=== PATIENT | female | born 1990 | race African-American/Black ===

== ENCOUNTER 2016-04-16 16:56 | Emergency (ER) | payer SELFPAY ==
[2016-04-16] MEDS ORDERED: PREDNISONE 20 MG TABLET PO ONE (18:17)
[2016-04-16] MEDS ORDERED: IPRATROPIUM/ALBUTEROL 0.5-2.5 MG/3 ML AMPUL NEB ONE (18:18)
--- NOTE | 2016-04-16 19:40 | ER Document Report ---
ED Respiratory Problem - General Chief Complaint: Cough Stated Complaint: DIFFICULTY BREATHING Time seen by provider: 19:36 Mode of Arrival: Ambulatory Information source: Patient Notes: 25-year-old female presents to ED for dry cough difficulty breathing. She states she's been using her inhaler and her friend's nebulizer was not given any relief. States EMS gave her an a and a neb in the ambulance. Denies any fever. TRAVEL OUTSIDE OF THE [place] IN LAST 30 DAYS: No - HPI Patient complains to provider of: COPD, Short of breath Onset: Other - 2 days Duration: Better Initiating Event: URI Quality of pain: No pain Severity: None Pain Level: Denies Short of Breath: Mild Cough: Nonproductive Sputum amount: None At home treatment: Bronchodilators EMS treatments: Bronchodilators Associated symptoms: Congestion, Cough, PND Similar symptoms previously: Yes Recently seen / treated by doctor: No - Related Data Allergies/Adverse Reactions: No Known Allergies Allergy (Verified 05/05/15 17:48) Past Medical History - General Information source: Patient, Emergency Med Personnel Last Menstrual Period: 03/30/16 - Social History Smoking Status: Never Smoker Chew tobacco use (# tins/day): No Frequency of alcohol use: Social Drug Abuse: None Occupation: call center Lives with: Friend Family History: Arthritis, CAD, CVA, DM, Hyperlipidemia, Hypertension, Malignancy, Thyroid Disfunction, Other Patient has suicidal ideation: No Patient has homicidal ideation: No - Past Medical History Cardiac Medical History: Reports: None Pulmonary Medical History: Reports: Hx Asthma Denies: Hx Tuberculosis EENT Medical History: Reports: None Neurological Medical History: Reports: Hx Migraine Endocrine Medical History: Reports: Hx Hypothyroidism - Hashimotos Disease Renal/ Medical History: Reports: None Malignancy Medical History: Reports: None GI Medical History: Reports: None Musculoskeltal Medical History: Reports Hx Musculoskeletal Deformity - Scoliosis Skin Medical History: Reports Hx Eczema Psychiatric Medical History: Reports: Hx Depression Traumatic Medical History: Reports: None Infectious Medical History: Reports: None Past Surgical History: Reports: Hx Tubal Ligation - Immunizations Immunizations up to date: Yes Hx Diphtheria, Pertussis, Tetanus Vaccination: Yes Review of Systems - Review of Systems Constitutional: Chills, Recent illness EENT: No symptoms reported, Sinus discharge Cardiovascular: No symptoms reported Respiratory: Cough, Short of breath Gastrointestinal: No symptoms reported Genitourinary: No symptoms reported Female Genitourinary: No symptoms reported Musculoskeletal: No symptoms reported Skin: No symptoms reported Hematologic/Lymphatic: No symptoms reported Neurological/Psychological: No symptoms reported Physical Exam - Vital signs Vitals: Temp Pulse Resp BP Pulse Ox 98.1 F 107 H 20 109/68 94 04/16/16 17:11 04/16/16 17:11 04/16/16 17:11 04/16/16 17:11 04/16/16 17:11 Interpretation: Normal - General General appearance: Appears well, Alert - HEENT Head: Normocephalic, Atraumatic Eyes: Normal Pupils: PERRL Sinus: Normal Nasal: Purulent discharge, Swelling Mouth/Lips: Normal Pharynx: Post nasal drainage Neck: Normal - Respiratory Respiratory status: No respiratory distress. No: Respiratory distress Chest status: Nontender Breath sounds: Nonproductive cough Chest palpation: Normal - Cardiovascular Rhythm: Regular Heart sounds: Normal auscultation Murmur: No - Abdominal Inspection: Normal Distension: No distension Bowel sounds: Normal Tenderness: Nontender Organomegaly: No organomegaly - Back Back: Normal, Nontender - Extremities General upper extremity: Normal inspection, Nontender, Normal color, Normal ROM , Normal temperature General lower extremity: Normal inspection, Nontender, Normal color, Normal ROM , Normal temperature, Normal weight bearing. No: Yolette's sign - Neurological Neuro grossly intact: Yes Cognition: Normal Orientation: AAOx4 [place] Coma Scale Eye Opening: Spontaneous [place] Coma Scale Verbal: Oriented [place] Coma Scale Motor: Obeys Commands [place] Coma Scale Total: 15 Speech: Normal Motor strength normal: LUE, RUE, LLE, RLE Sensory: Normal - Psychological Associated symptoms: Normal affect, Normal mood - Skin Skin Temperature: Warm Skin Moisture: Dry Skin Color: Normal Course - Re-evaluation Re-evalutation: 04/16/16 20:25 Discussed x-ray with patient and written report given to patient. Patient is aware she has scoliosis. The patient he x-ray on the monitor. - Vital Signs Vital signs: Temp Pulse Resp BP Pulse Ox 98.1 F 107 H 20 109/68 94 04/16/16 17:11 04/16/16 17:11 04/16/16 17:11 04/16/16 17:11 04/16/16 17:11 - Diagnostic Test Radiology reviewed: Image reviewed, Reports reviewed Discharge - Discharge Clinical Impression: URI (upper respiratory infection) Qualifiers: URI type: unspecified URI Qualified Code(s): J06.9 - Acute upper respiratory infection, unspecified Scoliosis Qualifiers: Scoliosis type: idiopathic Idiopathic scoliosis type: adolescent Spinal region : thoracic Qualified Code(s): M41.124 - Adolescent idiopathic scoliosis, thoracic region Condition: Stable Disposition: HOME, SELF-CARE Instructions: Family Physicians / Practices Additional Instructions: UPPER RESPIRATORY ILLNESS: You have a viral infection of the respiratory passages -- a "cold." This common infection causes nasal congestion, drainage, and often sore throat and cough. It is highly contagious. The disease usually lasts about 10 to 14 days. There is no "cure" for the viral infection -- it must run its course. If there is a complication, such as bacterial infection in the nose, sinuses, middle ear, or bronchial tubes, antibiotics may be required. The antibiotics won't affect the virus. Drink plenty of fluids. A humidifier may help. An expectorant medication or decongestant may make you more comfortable. Use acetaminophen or ibuprofen for fever or aches. See the doctor if fever persists over two days, if there is any significant worsening of your symptoms, or if you simply fail to improve as expected. BRONCHOSPASM: You have tightness in the bronchial tubes, called bronchospasm. This often occurs with bronchial infections. Allergies, inhaled chemicals, and polluted or cold air can also provoke bronchospasm. It's more likely in patients with asthma in the family. Emergency treatment of bronchospasm may include adrenaline shots or bronchodilator aerosol. You may feel lightheaded and have a rapid pulse for an hour or two. Rest and get plenty of fluids. At home, we'll treat you with a bronchodilator inhaler. Antibiotics and corticosteroids may be required for some patients. Until you recover, avoid chemical fumes, dusts, pollens, and exercising in very cold or dry air. If you smoke, stop now!! If you develop a fever, increased wheezing, chest pain, or severe shortness of breath, you should contact the doctor immediately. DECONGESTANT MEDICATION: A decongestant medicine has been prescribed. Often this medicine is combined in the same tablet with an antihistamine or expectorant. This type of medicine is helpful in treating a bad cold or sinus condition, as well as in treatment of the nasal congestion of hay fever. It is not of much benefit for lung infections. Decongestant medicines are related to stimulants. They can cause an increase in blood pressure and heart rate. Persons with heart disease and high blood pressure should not take decongestants without discussing this with the physician. If you develop palpitations, chest pain, headache, or tremors, stop the medicine and consult your physician. COUGH-SUPPRESSANT & EXPECTORANT MEDICATION: You are to use a cough medication as needed for relief of symptoms. This medicine is a combination of an expectorant (to make the mucous thinner and more easily "coughed up") and a cough suppressant (to reduce the frequency of coughing). The cough-suppressant medicine is related to narcotics. You may experience mild nausea and sleepiness. Some patients who are very sensitive to narcotics may have stomach pain from this medicine. Taking the medicine with food reduces these side effects. Do not drive or work with machinery until you know how this medicine affects you. The expectorant should have no side effects. Iodine-containing expectorants (such as organidin) should not be taken by persons with active thyroid disease unless approved by your doctor. Call the doctor if you develop shortness of breath, hives, rash, itching, lightheadedness, or severe nausea and vomiting. INHALED BRONCHODILATORS: You have received a treatment of and/or prescription for an inhaled bronchodilator -- a medication which stimulates the airways in the lung to dilate. This improves the flow of air in asthma, bronchitis, and emphysema. These medicines have some similarity to adrenaline, and can cause similar side effects: shakiness, racing heart, and a sense of nervousness. These side effects decrease with time. Contact your doctor if these side effects are severe. Do not over-use the medicine. Too-frequent use of the inhaler may make it ineffective. Call your doctor if the inhaler is not controlling your symptoms at the prescribed doses. STEROID MEDICATION: You have been given an injection of or oral medicine of the cortisone/ steroid class. This medication is used to control inflammation or allergy. Jonathan t is usually only given for a short period of time, until the acute process subsides. There are usually no side effects from short-term use of cortisone-like medications. Some persons feel an increased sense of well-being and are not sleepy at bedtime. Long-term use of cortisone medications is best avoided, unless required for a severe condition. If your condition does not remit, or relapses after the course of corticosteroid medication, you should consult your physician. USE OF ACETAMINOPHEN (Tylenol): Acetaminophen may be taken for pain relief or fever control. It's much safer than aspirin, offering a wider range of "safe" dosages. It is safe during . Some brand names are Tylenol, Panadol, Datril, Anacin 3, Tempra, and Liquiprin. Acetaminophen can be repeated every four hours. The following are maximum recommended dosages: >89 pounds or adults 650 mg to 900 mg Acetaminophen can be repeated every four hours. Maximum dose not to exceed 4000 mg a day. FOLLOW-UP CARE: If you have been referred to a physician for follow-up care, call the physician s office for an appointment as you were instructed or within the next two days. If you experience worsening or a significant change in your symptoms, notify the physician immediately or return to the Emergency Department at any time for re-evaluation. Prescriptions: Albuterol Sulfate [Proair HFA Inhalation Aerosol 8.5 gm MDI] 2 puff IH Q4H PRN # 1 mdi PRN Reason: Prednisone [Sterapred Ds] 1 pkg PO ASDIR PRN 12 Days PRN Reason: Forms: Return to Work
[2016-04-16 21:17] VITALS: BP 96/52
== END 2016-04-16 21:16 | disposition home or self-care (01) ==
LOC: ER 16:56
DX: J06.9 Acute upper respiratory infection, unspecified (principal); M41.124 Adolescent idiopathic scoliosis, thoracic region; R05 Cough; R06.02 Shortness of breath; J44.9 Chronic obstructive pulmonary disease, unspecified
CPT/HCPCS: 94640; 99283; 71020; J7512; J7620

== ENCOUNTER 2016-07-28 16:55 | Emergency (ER) | payer SELFPAY ==
[2016-07-28] MEDS ORDERED: PROCHLORPERAZINE EDISYLATE INJ 10 MG/2 ML VIAL IV ONE (17:06)
[2016-07-28] MEDS ORDERED: DIPHENHYDRAMINE HCL 50 MG/ML VIAL IV ONE (17:06)
--- NOTE | 2016-07-28 18:43 | ER Document Report ---
ED General - General Chief Complaint: Headache Stated Complaint: HEADACHE Mode of Arrival: Ambulatory Information source: Patient Notes: 25-year-old female presents with complaints of headache dental pain insomnia. Patient called EMS for her headache which has been ongoing now for a few weeks. Denies any fevers or chills denies any nuchal rigidity. Patient has not been seen for these complaints in the past. Patient also notes that she has dental pain that she has not been seen for. TRAVEL OUTSIDE OF THE [place] IN LAST 30 DAYS: No - HPI Onset: Last week Onset/Duration: Persistent Quality of pain: Achy Severity: Mild Pain Level: 1 Associated symptoms: Headache, Other Exacerbated by: Denies Relieved by: Denies Similar symptoms previously: No Recently seen / treated by doctor: No - Related Data Allergies/Adverse Reactions: No Known Allergies Allergy (Verified 05/05/15 17:48) Past Medical History - Social History Smoking Status: Never Smoker Cigarette use (# per day): No Chew tobacco use (# tins/day): No Smoking Education Provided: No Frequency of alcohol use: Social Drug Abuse: None Family History: Arthritis, CAD, CVA, DM, Hyperlipidemia, Hypertension, Malignancy, Thyroid Disfunction, Other Pulmonary Medical History: Reports: Hx Asthma Denies: Hx Tuberculosis Neurological Medical History: Reports: Hx Migraine Endocrine Medical History: Reports: Hx Hypothyroidism - Hashimotos Disease Renal/ Medical History: Denies: Hx Ectopic Musculoskeltal Medical History: Reports Hx Musculoskeletal Deformity - Scoliosis Skin Medical History: Reports Hx Eczema Psychiatric Medical History: Reports: Hx Depression Past Surgical History: Reports: Hx Tubal Ligation. Denies: Hx Pacemaker - Immunizations Immunizations up to date: Yes Hx Diphtheria, Pertussis, Tetanus Vaccination: Yes Review of Systems - Review of Systems Notes: REVIEW OF SYSTEMS: CONSTITUTIONAL : Denies fever, chills, or sweats. Denies recent illness. EENT: Denies eye, ear, throat, or mouth pain or symptoms. Denies nasal or sinus congestion or discharge. Denies throat, tongue, or mouth swelling or difficulty swallowing. CARDIOVASCULAR: Denies chest pain. Denies palpitations or racing or irregular heart beat. Denies ankle edema. RESPIRATORY: Denies cough, cold, or chest congestion. Denies shortness of breath, difficulty breathing, or wheezing. GASTROINTESTINAL: Denies abdominal pain or distention. Denies nausea, vomiting , or diarrhea. Denies blood in vomitus, stools, or per rectum. Denies black, tarry stools. Denies constipation. GENITOURINARY: Denies difficulty urinating, painful urination, burning, frequency, blood in urine, or discharge. FEMALE GENITOURINARY: Denies vaginal bleeding, heavy or abnormal periods, irregular periods. Denies vaginal discharge or odor. MUSCULOSKELETAL: Denies back or neck pain or stiffness. Denies joint pain or swelling. SKIN: Denies rash, lesions or sores. HEMATOLOGIC : Denies easy bruising or bleeding. LYMPHATIC: Denies swollen, enlarged glands. NEUROLOGICAL: Denies confusion or altered mental status. Denies passing out or loss of consciousness. Denies dizziness or lightheadedness. Denies headache. Denies weakness or paralysis or loss of use of either side. Denies problems with gait or speech. Denies sensory loss, numbness, or tingling. Denies seizures. PSYCHIATRIC: Denies anxiety or stress. Denies depression, suicidal ideation, or homicidal ideation. ALL OTHER SYSTEMS REVIEWED AND NEGATIVE. Dictation was performed using [employer] voice recognition software PHYSICAL EXAMINATION: GENERAL: Well-appearing, well-nourished and in no acute distress. Patient sleeping on multiple evaluations HEAD: Atraumatic, normocephalic. EYES: Pupils equal round and reactive to light, extraocular movements intact, conjunctiva are normal. ENT: Nares patent, oropharynx clear without exudates. Moist mucous membranes. Poor dentition without abscess NECK: Normal range of motion, supple without lymphadenopathy LUNGS: Breath sounds clear to auscultation bilaterally and equal. No wheezes rales or rhonchi. HEART: Regular rate and rhythm without murmurs ABDOMEN: Soft, nontender, nondistended abdomen. No guarding, no rebound. No masses appreciated. Female : deferred Musculoskeletal: Normal range of motion, no pitting or edema. No cyanosis. NEUROLOGICAL: Cranial nerves grossly intact. Normal speech, normal gait. Normal sensory, motor exams PSYCH: Normal mood, normal affect. SKIN: Warm, Dry, normal turgor, no rashes or lesions noted. Physical Exam - Vital signs Vitals: Temp Pulse Resp BP Pulse Ox 98.0 F 76 16 116/73 100 07/28/16 17:51 07/28/16 17:51 04/15/17 17:51 07/28/16 17:51 07/28/16 17:51 Course - Re-evaluation Re-evalutation: 07/28/16 19:14 Patient was given medication for her headache, was resting comfortably throughout, when I woke her she stated she felt much better was very appreciative of the care. I will discharge her home on antibiotics for sinusitis is noted on her CT of the head as well as for a dental infection. Otherwise patient looks well is in no distress was resting comfortably. I have answered her many questions and she is stable for discharge After performing a Medical Screening Examination, I estimate there is LOW risk for ACUTE GLAUCOMA, TEMPORAL ARTERITIS, MENINGITIS, INCRANIAL HEMORRHAGE, or ISCHEMIC STROKE thus I consider the discharge disposition reasonable. I have reevaluated this patient multiple times and no significant life threatening changes are noted. The patient and I have discussed the diagnosis and risks, and we agree with discharging home with close follow-up with the understanding that symptoms and presentations can change. We also discussed returning to the Emergency Department immediately if new or worsening symptoms occur. We have discussed the symptoms which are most concerning (e.g., changing or worsening symptoms, new numbness or weakness, vomiting, fever) that necessitate immediate return. - Vital Signs Vital signs: Temp Pulse Resp BP Pulse Ox 98.0 F 76 16 116/73 100 07/28/16 17:51 07/28/16 17:51 07/28/16 17:51 07/28/16 17:51 07/28/16 17:51 - Diagnostic Test Radiology reviewed: Image reviewed, Reports reviewed Discharge - Discharge Clinical Impression: Pain, dental Headache Qualifiers: Headache type: unspecified Headache chronicity pattern: acute headache Intractability: not intractable Qualified Code(s): R51 - Headache Sinusitis Qualifiers: Sinusitis location: unspecified location Chronicity: acute Recurrence: non- recurrent Qualified Code(s): J01.90 - Acute sinusitis, unspecified Condition: Stable Disposition: HOME, SELF-CARE Instructions: Headache ([facility]), Toothache ([facility]) Additional Instructions: Follow up with your physician tomorrow for further care or return to the ED IMMEDIATELY if symptoms worsen or new concerns occur. If you cannot afford to follow up with your primary care physician a list of low cost clinics have been provided at the end of your discharge papers as well. Prescriptions: Amoxicillin 875 mg PO BID #20 tablet
[2016-07-28 19:21] VITALS: BP 112/71
== END 2016-07-28 19:19 | disposition home or self-care (01) ==
LOC: ER 16:55
DX: J01.90 Acute sinusitis, unspecified (principal); R51 Headache; K08.89 Other specified disorders of teeth and supporting structures
CPT/HCPCS: 70450; 96374; 96375; 99284; J0780; J1200

== ENCOUNTER 2016-08-08 11:15 | Emergency (ER) | payer SELFPAY ==
[2016-08-08] MEDS ORDERED: IBUPROFEN 600 MG TABLET PO ONE (12:03)
--- NOTE | 2016-08-08 12:04 | ER Document Report ---
ED Medical Screen (RME) - General Chief Complaint: Headache Stated Complaint: HEADACHE Mode of Arrival: Ambulatory Information source: Patient Notes: This is a 25-year-old female who called EMS for headache. She states that she has been dealing with frequent headaches for the past several months. Of note she was seen here 11 days ago for the same headache and had a CT of her head and was treated for sinusitis. No fevers or chills. She does report right- sided neck pain and pain and intermittent numbness to the right upper extremity. She is also concerned about a possible bad tooth on the right side. In triage she is noted to have no focal neuro deficits. Her cranial nerves are intact bilaterally. I have greeted and performed a rapid initial assessment of this patient. A comprehensive ED assessment and evaluation of the patient, analysis of test results and completion of the medical decision making process will be conducted by additional ED providers. TRAVEL OUTSIDE OF THE [place] IN LAST 30 DAYS: No - Related Data Allergies/Adverse Reactions: No Known Allergies Allergy (Verified 05/05/15 17:48) Past Medical History Pulmonary Medical History: Reports: Hx Asthma Denies: Hx Tuberculosis Neurological Medical History: Reports: Hx Migraine Endocrine Medical History: Reports: Hx Hypothyroidism - Hashimotos Disease Renal/ Medical History: Denies: Hx Ectopic , Hx Peritoneal Dialysis Musculoskeltal Medical History: Reports Hx Musculoskeletal Deformity - Scoliosis Skin Medical History: Reports Hx Eczema Psychiatric Medical History: Reports: Hx Depression Past Surgical History: Reports: Hx Tubal Ligation. Denies: Hx Pacemaker - Immunizations Immunizations up to date: Yes Hx Diphtheria, Pertussis, Tetanus Vaccination: Yes Physical Exam - Vital signs Vitals: Temp Pulse Resp BP Pulse Ox 98.2 F 89 14 116/75 99 08/08/16 11:19 08/08/16 11:19 08/08/16 11:19 08/08/16 11:19 08/08/16 11:19 Course - Vital Signs Vital signs: Temp Pulse Resp BP Pulse Ox 97.5 F 58 L 18 123/79 99 08/08/16 13:23 08/08/16 13:23 08/08/16 13:23 08/08/16 13:23 08/08/16 13:23 Doctor's Discharge - Discharge Clinical Impression: right trapezius muscle spasm, Muscle contraction headache Condition: Good Disposition: HOME, SELF-CARE Instructions: Headache ([facility]), Muscle Relaxers ([facility]), Myalagia (Muscle Pain) ( [facility]) Additional Instructions: warm compress to sore muscles range of motion, massage of the upper back muscles will help decrease the pain see neurologist for persistant pain see family practice doctor for routine care to er if worse Please complete the patient satisfaction survey if you get one, and return it.. If you do not receive a survey, then you can go to the [facility] website, [email or web address] and place your comments about your very good care. Thank you very much. It was a pleasure being your medical provider today. Prescriptions: Ibuprofen [Motrin 600 mg Tablet] 600 mg PO Q8HP PRN #30 tablet PRN Reason: Cyclobenzaprine HCl [Flexeril 10 Mg Tablet] 10 mg PO TIDP PRN #20 tablet PRN Reason: Referrals: JOSE ONEILL MD [ACTIVE STAFF] - Follow up in 1 week
--- NOTE | 2016-08-08 12:37 | ER Document Report ---
HPI - HPI Patient complains to provider of: right-sided headache that starts in the right side of her neck Onset: Other - Chronic and intermittent Onset/Duration: Persistent, Worse Quality of pain: Achy Pain Level: 4 Context: 25-year-old female complaining of right sided trapezius neck pain that radiates into causing a headache in the right side of her head. She has no photophobia or sensitivity to sound. She has a history of Guerrero's thyroiditis. No Cervical spine radiculopathy or injury. Associated Symptoms: None Exacerbated by: Movement Relieved by: Denies - Of the neck Similar symptoms previously: Yes Recently seen / treated by doctor: No - ROS ROS below otherwise negative: Yes Systems Reviewed and Negative: Yes All other systems reviewed and negative - REPRODUCTIVE LMP: JULY Reproductive: REPORTS: : - DERM Skin Color: Normal, [place] Past Medical History - General Information source: Patient - Social History Smoking Status: Never Smoker Frequency of alcohol use: None Drug Abuse: None Family History: Arthritis, CAD, CVA, DM, Hyperlipidemia, Hypertension, Malignancy, Thyroid Disfunction, Other Pulmonary Medical History: Reports: Hx Asthma Denies: Hx Tuberculosis Neurological Medical History: Reports: Hx Migraine Endocrine Medical History: Reports: Hx Hypothyroidism - Hashimotos Disease Musculoskeltal Medical History: Reports Hx Musculoskeletal Deformity - Scoliosis Skin Medical History: Reports Hx Eczema Psychiatric Medical History: Reports: Hx Depression Past Surgical History: Reports: Hx Tubal Ligation. Denies: Hx Pacemaker - Immunizations Immunizations up to date: Yes Hx Diphtheria, Pertussis, Tetanus Vaccination: Yes Vertical Provider Document - CONSTITUTIONAL Agree With Documented VS: Yes Exam Limitations: No Limitations - INFECTION CONTROL TRAVEL OUTSIDE OF THE [place] IN LAST 30 DAYS: No - HEENT HEENT: Atraumatic, Normocephalic - NECK Neck: Supple - Nontender C-spine, tender right trapezius - RESPIRATORY Respiratory: Breath Sounds Normal, No Respiratory Distress O2 Sat by Pulse Oximetry: 99 - CARDIOVASCULAR Cardiovascular: Regular Rate, Regular Rhythm - GI/ABDOMEN Gastrointestinal: Abdomen Soft, Abdomen Non-Tender, No Organomegaly, Normal Bowel Sounds - MUSCULOSKELETAL/EXTREMETIES Musculoskeletal/Extremeties: MAEW, FROM, Tender - See above - NEURO Level of Consciousness: Awake, Alert, Appropriate Motor/Sensory: No Motor Deficit, No Sensory Deficit - DERM Integumentary: Warm, Dry, No Rash Course - Vital Signs Vital signs: Temp Pulse Resp BP Pulse Ox 98.2 F 98 14 116/75 99 08/08/16 11:20 08/08/16 11:20 08/08/16 11:20 08/08/16 11:20 08/08/16 11:20 Discharge - Discharge Clinical Impression: right trapezius muscle spasm, Muscle contraction headache Condition: Good Disposition: HOME, SELF-CARE Instructions: Headache ([facility]), Muscle Relaxers ([facility]), Myalagia (Muscle Pain) ( [facility]) Additional Instructions: warm compress to sore muscles range of motion, massage of the upper back muscles will help decrease the pain see neurologist for persistant pain see family practice doctor for routine care to er if worse Please complete the patient satisfaction survey if you get one, and return it.. If you do not receive a survey, then you can go to the [facility] website, [email or web address] and place your comments about your very good care. Thank you very much. It was a pleasure being your medical provider today. Prescriptions: Ibuprofen [Motrin 600 mg Tablet] 600 mg PO Q8HP PRN #30 tablet PRN Reason: Cyclobenzaprine HCl [Flexeril 10 Mg Tablet] 10 mg PO TIDP PRN #20 tablet PRN Reason: Referrals: JOSE ONEILL MD [ACTIVE STAFF] - Follow up in 1 week
[2016-08-08] MEDS ORDERED: ACETAMINOPHEN 325 MG TABLET PO ONE (13:11)
[2016-08-08] MEDS ORDERED: LORAZEPAM 0.5 MG TABLET PO ONE (13:12)
[2016-08-08 13:26] VITALS: BP 123/79
== END 2016-08-08 13:26 | disposition home or self-care (01) ==
LOC: ER 11:15
DX: R51 Headache (principal); M62.838 Other muscle spasm; E03.9 Hypothyroidism, unspecified; Z98.51 Tubal ligation status
CPT/HCPCS: 99283

== ENCOUNTER 2016-12-29 15:24 | Emergency (ER) | payer SELFPAY ==
[2016-12-29] MEDS ORDERED: IPRATROPIUM/ALBUTEROL 0.5-2.5 MG/3 ML AMPUL NEB ONE (15:42)
[2016-12-29] MEDS ORDERED: PREDNISONE 20 MG TABLET PO ONE (15:42)
--- NOTE | 2016-12-29 15:44 | ER Document Report ---
ED Medical Screen (RME) - General Chief Complaint: Asthma Exacerbation Stated Complaint: DIFFICULTY BREATHING Time Seen by Provider: 12/29/16 15:42 TRAVEL OUTSIDE OF THE [place] IN LAST 30 DAYS: No - HPI Notes: 12/29/16 15:43 Patient with a history of asthma states out of her inhaler difficulty breathing started last night patient looks to be having trouble breathing however she is tolerating lemonade and RME forming complete sentences. Lungs sound mostly clear few scattered wheezes. - Related Data Allergies/Adverse Reactions: No Known Allergies Allergy (Verified 12/29/16 15:26) Past Medical History Pulmonary Medical History: Reports: Hx Asthma Denies: Hx Tuberculosis Neurological Medical History: Reports: Hx Migraine Endocrine Medical History: Reports: Hx Hypothyroidism - Hashimotos Disease Renal/ Medical History: Denies: Hx Ectopic , Hx Peritoneal Dialysis Musculoskeltal Medical History: Reports Hx Musculoskeletal Deformity - Scoliosis Skin Medical History: Reports Hx Eczema Psychiatric Medical History: Reports: Hx Depression Past Surgical History: Reports: Hx Tubal Ligation. Denies: Hx Pacemaker - Immunizations Immunizations up to date: Yes Hx Diphtheria, Pertussis, Tetanus Vaccination: Yes Review of Systems - Review of Systems Respiratory: Wheezing -: Yes All other systems reviewed and negative Physical Exam - Vital signs Vitals: Temp Pulse Resp BP Pulse Ox 99 F 94 20 120/58 L 100 12/29/16 15:27 12/29/16 15:27 12/29/16 15:27 12/29/16 15:27 12/29/16 15:27 - Respiratory Breath sounds: Wheezing - Scattered Course - Vital Signs Vital signs: Temp Pulse Resp BP Pulse Ox 99 F 94 20 120/58 L 100 12/29/16 15:27 12/29/16 15:27 12/29/16 15:27 12/29/16 15:27 12/29/16 15:27
--- NOTE | 2016-12-29 16:05 | RADIOLOGY REPORT (SQ) ---
EXAM DESCRIPTION: CHEST PA/LAT COMPLETED DATE/TIME: 12/29/2016 3:54 pm REASON FOR STUDY: sob COMPARISON: 04/16/2016. EXAM PARAMETERS: NUMBER OF VIEWS: two views TECHNIQUE: Digital Frontal and Lateral radiographic views of the chest acquired. RADIATION DOSE: NA LIMITATIONS: none FINDINGS: LUNGS AND PLEURA: No opacities, masses or pneumothorax. No pleural effusion. MEDIASTINUM AND HILAR STRUCTURES: No masses or contour abnormalities. HEART AND VASCULAR STRUCTURES: Heart normal size. No evidence for failure. BONES: Thoracic scoliosis. No acute findings. HARDWARE: None in the chest. OTHER: No other significant finding. IMPRESSION: NO SIGNIFICANT RADIOGRAPHIC FINDING IN THE CHEST. THORACIC SCOLIOSIS. TECHNICAL DOCUMENTATION: JOB ID: [id number] [employer]- All Rights Reserved
[2016-12-29] MEDS ORDERED: ALBUTEROL SULFATE HFA (90 MCG/PUFF) 8 GM MDI (1 MDI/ER DISP) IH ONE (16:50)
[2016-12-29 16:53] VITALS: BP 114/62
--- NOTE | 2016-12-29 16:55 | ER Document Report ---
ED General - General Chief Complaint: Asthma Exacerbation Stated Complaint: DIFFICULTY BREATHING Time Seen by Provider: 12/29/16 15:42 TRAVEL OUTSIDE OF THE [place] IN LAST 30 DAYS: No - HPI Patient complains to provider of: Difficulty breathing Notes: Patient with history of asthma coming in today for asthma exacerbation states she ran out of her inhaler last night and has had trouble breathing today. Patient denies any fevers chills patient with a dry cough. Patient is drinking lemonade upon her evaluation in [facility]. Denies any recent travel. No signs of severe respiratory distress on initial evaluation - Related Data Allergies/Adverse Reactions: No Known Allergies Allergy (Verified 12/29/16 15:26) Past Medical History - Social History Smoking Status: Current Every Day Smoker Chew tobacco use (# tins/day): No Frequency of alcohol use: None Drug Abuse: None Family History: Arthritis, CAD, CVA, DM, Hyperlipidemia, Hypertension, Malignancy, Thyroid Disfunction, Other Patient has suicidal ideation: No Patient has homicidal ideation: No Pulmonary Medical History: Reports: Hx Asthma Denies: Hx Tuberculosis Neurological Medical History: Reports: Hx Migraine Endocrine Medical History: Reports: Hx Hypothyroidism - Hashimotos Disease Renal/ Medical History: Denies: Hx Ectopic , Hx Peritoneal Dialysis Musculoskeltal Medical History: Reports Hx Musculoskeletal Deformity - Scoliosis Skin Medical History: Reports Hx Eczema Psychiatric Medical History: Reports: Hx Depression Past Surgical History: Reports: Hx Tubal Ligation. Denies: Hx Pacemaker - Immunizations Immunizations up to date: Yes Hx Diphtheria, Pertussis, Tetanus Vaccination: Yes Review of Systems - Review of Systems Constitutional: No symptoms reported EENT: No symptoms reported Cardiovascular: No symptoms reported Respiratory: Short of breath Gastrointestinal: No symptoms reported Genitourinary: No symptoms reported Female Genitourinary: No symptoms reported Musculoskeletal: No symptoms reported Skin: No symptoms reported Hematologic/Lymphatic: No symptoms reported Neurological/Psychological: No symptoms reported -: Yes All other systems reviewed and negative Physical Exam - Vital signs Vitals: Temp Pulse Resp BP Pulse Ox 99 F 94 20 120/58 L 100 12/29/16 15:27 12/29/16 15:27 12/29/16 15:27 12/29/16 15:27 12/29/16 15:27 Interpretation: Normal - General General appearance: Appears well, Alert - HEENT Head: Normocephalic, Atraumatic Eyes: Normal Pupils: PERRL - Respiratory Respiratory status: No respiratory distress Chest status: Nontender Breath sounds: Wheezing Chest palpation: Normal - Cardiovascular Rhythm: Regular Heart sounds: Normal auscultation Murmur: No - Abdominal Inspection: Normal Distension: No distension Bowel sounds: Normal Tenderness: Nontender Organomegaly: No organomegaly - Back Back: Normal, Nontender - Extremities General upper extremity: Normal inspection, Nontender, Normal color, Normal ROM , Normal temperature General lower extremity: Normal inspection, Nontender, Normal color, Normal ROM , Normal temperature, Normal weight bearing. No: Yolette's sign - Neurological Neuro grossly intact: Yes Cognition: Normal Orientation: AAOx4 [place] Coma Scale Eye Opening: Spontaneous [place] Coma Scale Verbal: Oriented [place] Coma Scale Motor: Obeys Commands [place] Coma Scale Total: 15 Speech: Normal Motor strength normal: LUE, RUE, LLE, RLE Sensory: Normal - Psychological Associated symptoms: Normal affect, Normal mood - Skin Skin Temperature: Warm Skin Moisture: Dry Skin Color: Normal Course - Re-evaluation Re-evalutation: 12/29/16 17:39 Patient presents with shortness of breath better after DuoNeb. Is on chest x- ray negative will discharge home with Ventolin inhaler prescription for another albuterol inhaler and prednisone patient will be discharged home - Vital Signs Vital signs: Temp Pulse Resp BP Pulse Ox 99.4 F 104 H 16 114/62 98 12/29/16 16:52 12/29/16 16:52 12/29/16 16:52 12/29/16 16:52 12/29/16 16:52 Discharge - Discharge Clinical Impression: Asthma Qualifiers: Asthma severity: unspecified severity Asthma complication type: uncomplicated Qualified Code(s): J45.909 - Unspecified asthma, uncomplicated Condition: Good Disposition: HOME, SELF-CARE Instructions: Asthma (OM), Inhaled Bronchodilators (OM) Additional Instructions: Use the inhaler that we gave you here 2 puffs every 4 hours for shortness of breath. Return to the ER symptoms worsen. Take steroids as prescribed. Prescriptions: Albuterol Sulfate [Proair HFA Inhalation Aerosol 8.5 gm MDI] 2 puff IH Q4H PRN # 1 mdi PRN Reason: Prednisone [Deltasone 20 mg Tablet] 2 tab PO DAILY 5 Days tablet Forms: Return to Work
== END 2016-12-29 17:00 | disposition home or self-care (01) ==
LOC: ER 15:24
DX: J45.909 Unspecified asthma, uncomplicated (principal); F17.200 Nicotine dependence, unspecified, uncomplicated; E06.3 Autoimmune thyroiditis; Z98.51 Tubal ligation status
CPT/HCPCS: 94640; 99285; 81025; 71020; J7512; J3490; J7620

== ENCOUNTER 2017-01-24 11:15 | Emergency (ER) | payer SELFPAY ==
[2017-01-24] MEDS ORDERED: ALBUTEROL SULFATE HFA (90 MCG/PUFF) 8 GM MDI (1 MDI/ER DISP) IH ONE (13:03)
--- NOTE | 2017-01-24 13:04 | ER Document Report ---
ED General - General Mode of Arrival: Ambulatory Information source: Patient TRAVEL OUTSIDE OF THE [place] IN LAST 30 DAYS: No - HPI Patient complains to provider of: Rash to neck, back, abdomen, and bilateral arms Onset: Other - 1 month ago Associated symptoms: Other - see notes above - General Chief Complaint: Rash Stated Complaint: RASH,SHORTNESS OF BREATH Time Seen by Provider: 01/24/17 12:49 Notes: 26 year old female with history of eczema presents to the ED complaining of a generalized burning and pruritic rash to the neck, back, abdomen, and bilateral arms that started 1 month ago. Patient initially thought it was eczema, but states that the rash does not look like her normal eczema. Patient denies any recent changes to soaps or diet. Patient is additionally complaining of nausea and vaginal spotting for the past week. She explains that her menstrual period is always regular. Patient denies any abdominal pain, but is complaining of a burning sensation to her sternum. Patient is not on any control pills, but has a history of a tubal ligation. Patient is out of her current inhaler medication and is unable to afford another , so she is requesting one from the ER if possible. Patient has no breathing complaints. (BINA JURADO) - Related Data Allergies/Adverse Reactions: No Known Allergies Allergy (Verified 01/24/17 11:17) Past Medical History - General Information source: Patient - Social History Smoking Status: Never Smoker Chew tobacco use (# tins/day): No Frequency of alcohol use: Social Drug Abuse: None Family History: Arthritis, CAD, CVA, DM, Hyperlipidemia, Hypertension, Malignancy, Thyroid Disfunction, Other Patient has suicidal ideation: No Pulmonary Medical History: Reports: Hx Asthma Denies: Hx Tuberculosis Neurological Medical History: Reports: Hx Migraine Endocrine Medical History: Reports: Hx Hypothyroidism - Hashimotos Disease Renal/ Medical History: Denies: Hx Ectopic , Hx Peritoneal Dialysis Musculoskeltal Medical History: Reports Hx Musculoskeletal Deformity - Scoliosis Skin Medical History: Reports Hx Eczema Psychiatric Medical History: Reports: Hx Depression Past Surgical History: Reports: Hx Tubal Ligation. Denies: Hx Pacemaker - Immunizations Immunizations up to date: Yes Hx Diphtheria, Pertussis, Tetanus Vaccination: Yes - Medical History Notes: gallo's disease (BINA JURADO) Review of Systems - Review of Systems Constitutional: No symptoms reported EENT: No symptoms reported Cardiovascular: No symptoms reported Respiratory: No symptoms reported Gastrointestinal: See HPI, Nausea Genitourinary: No symptoms reported Female Genitourinary: See HPI, Vaginal bleeding. denies: Irregular period Musculoskeletal: No symptoms reported Skin: See HPI, Rash - neck, back, abdomen, and bilateral arms Hematologic/Lymphatic: No symptoms reported Neurological/Psychological: No symptoms reported -: Yes All other systems reviewed and negative Physical Exam - General General appearance: Alert In distress: None - HEENT Head: Normocephalic, Atraumatic Eyes: Normal Extraocular movements intact: Yes Pupils: PERRL - Respiratory Respiratory status: No respiratory distress Breath sounds: Normal - Cardiovascular Rhythm: Regular Heart sounds: Normal auscultation Murmur: No Friction rub: No Gallop: None auscultated - Abdominal Inspection: Normal Tenderness: Tender - mild ashok-umbilical tenderness to palpation - Extremities General upper extremity: Normal ROM. No: Normal inspection - see skin exam below General lower extremity: Normal inspection, Normal ROM - Neurological Neuro grossly intact: Yes Cognition: Normal Orientation: AAOx4 [place] Coma Scale Eye Opening: Spontaneous [place] Coma Scale Verbal: Oriented [place] Coma Scale Motor: Obeys Commands [place] Coma Scale Total: 15 Speech: Normal - Psychological Associated symptoms: Normal affect, Normal mood - Skin Skin Temperature: Warm Skin Moisture: Dry Skin Color: Other - Nonerythematous rash with plaquing to the left anterior cubital region with some cracking to the left arm. - Vital signs Vitals: Temp Pulse Resp BP Pulse Ox 98.0 F 69 16 132/95 H 100 01/24/17 11:18 01/24/17 11:18 01/24/17 11:18 01/24/17 11:18 01/24/17 11:18 - Skin Notes: Exam should say antecubital fossa and plaquing not cracking. (EMMY GLOVER) Course - Re-evaluation Re-evalutation: 01/24/17 13:15 Rash quite suspicious for psoriasis particularly given the plaquing, patient just started taking oral prednisone 2 days ago, I suggested that she finish the oral prednisone over the next 3 days and then only if she does not see improvement in her rash should she start using topical steroids. Patient also complaining of spotting, discussed with patient that so long as her test is negative trace spotting in between periods is not overly concerning particularly as an isolated event, she will return for heavy vaginal bleeding soaking through more than 1 pad per hour or for pain, otherwise she will follow up with [facility] should the spotting persist for more than 1 cycle. Patient denies any respiratory complaints at this time however she cannot afford to refill her inhaler and is an asthmatic, patient will be given inhaler from the emergency department. (EMMY GLOVER) - Vital Signs Vital signs: Temp Pulse Resp BP Pulse Ox 98.1 F 77 20 133/88 H 100 01/24/17 14:26 01/24/17 14:26 01/24/17 14:26 01/24/17 14:26 01/24/17 14:26 Discharge - Discharge Clinical Impression: Vaginal bleeding between periods, Medication refill, Pre-hypertension Eczema Qualifiers: Eczema type: flexural Qualified Code(s): L20.82 - Flexural eczema Condition: Stable Disposition: HOME, SELF-CARE Additional Instructions: Your rash appears consistent with eczema. Please finish taking the prednisone, this may help to improve your symptoms. If it does not improve your symptoms then please start using a topical steroid cream such as hydrocortisone, you can find this [id number]. If you use the hydrocortisone please be aware that may cause bleaching of the skin or thinning of the skin. Do not cover the hydrocortisone cream with anything. You may also consider switching to a non-soap based cleanser such as Cetaphil. Your test is negative. Forms: Elevated Blood Pressure, Return to Work Referrals: LUIS AMADOR DO [Primary Care Provider] - Follow up as needed Scribe Attestation: 01/24/17 16:50 I personally performed the services described in the documentation, reviewed and edited the documentation which was dictated to the scribe in my presence, and it accurately records my words and actions. (EMMY GLOVER) Scribe Documentation - Scribe Written by Gonzalez:: Gonzalez Ledesma, 01/24/2017 [id number] acting as scribe for :: Edison
[2017-01-24 14:28] VITALS: BP 133/88
== END 2017-01-24 14:27 | disposition home or self-care (01) ==
LOC: ER 11:15
DX: L20.82 Flexural eczema (principal); N93.9 Abnormal uterine and vaginal bleeding, unspecified; R11.0 Nausea; R03.0 Elevated blood-pressure reading, without diagnosis of hypertension; R10.815 Periumbilic abdominal tenderness; J45.909 Unspecified asthma, uncomplicated; Z76.0 Encounter for issue of repeat prescription; Z98.51 Tubal ligation status
CPT/HCPCS: 99283; 81025; J3490

== ENCOUNTER 2017-03-09 19:57 | Emergency (ER) | payer SELFPAY ==
[2017-03-09 20:20] VITALS: BP 112/75
[2017-03-09] MEDS ORDERED: HYDROCORTISONE 1% OINTMENT 28.35 GM TP ONE (20:52)
[2017-03-09] MEDS ORDERED: FAMOTIDINE 20 MG TABLET PO ONE (20:52)
[2017-03-09] MEDS ORDERED: HYDROXYZINE PAMOATE 50 MG CAPSULE PO ONE (20:52)
--- NOTE | 2017-03-09 21:00 | ER Document Report ---
ED Skin Rash/Insect Bite/Abscs - General Chief Complaint: Rash Stated Complaint: POSSIBLE RASH Time Seen by Provider: 03/09/17 20:37 Mode of Arrival: Ambulatory Information source: Patient Notes: 26-year-old female presents to ED for complaint of rash to her neck torso arms and legs. She states it is been there about 2 months and she was seen here on February 16 and given prednisone tramadol and Keflex. She states that the rash got better for about a week and then it came right back and she continued taking the medication until she ran out of them. She was also seen in January 24 for the same rash. She has not been to a primary doctor and saw sharpener or a steel rule inspector because she states she does not have money to go to doctors and does not have transportation to go to another hospital that she is just walking because the doctor told her she could not work while she had this rash so her job let her go. TRAVEL OUTSIDE OF THE [place] IN LAST 30 DAYS: No - HPI Patient complains to provider of: Skin rash/lesion, Tender/swollen area Onset: Other - 2 months Onset/Duration: Persistent Quality of pain: Burning Severity: Severe Pain Level: 5 Skin Character: Rash Identify cause: No Exacerbated by: Denies Relieved by: Denies Similar symptoms previously: Yes Recently seen / treated by doctor: Yes - Related Data Allergies/Adverse Reactions: No Known Allergies Allergy (Verified 03/09/17 20:20) Past Medical History - General Information source: Patient - Social History Smoking Status: Never Smoker Cigarette use (# per day): No Chew tobacco use (# tins/day): No Smoking Education Provided: No Frequency of alcohol use: Social Drug Abuse: None Family History: Arthritis, CAD, CVA, DM, Hyperlipidemia, Hypertension, Malignancy, Thyroid Disfunction, Other Patient has suicidal ideation: No Patient has homicidal ideation: No - Past Medical History Cardiac Medical History: Reports: None Pulmonary Medical History: Reports: Hx Asthma EENT Medical History: Reports: None Neurological Medical History: Reports: Hx Migraine Endocrine Medical History: Reports: Hx Hypothyroidism - Hashimotos Disease Renal/ Medical History: Reports: None Malignancy Medical History: Reports: None GI Medical History: Reports: None Musculoskeltal Medical History: Reports Hx Musculoskeletal Deformity - Scoliosis Skin Medical History: Reports Hx Eczema Psychiatric Medical History: Reports: Hx Depression Traumatic Medical History: Reports: None Infectious Medical History: Reports: None Past Surgical History: Reports: Hx Tubal Ligation - Immunizations Immunizations up to date: Yes Hx Diphtheria, Pertussis, Tetanus Vaccination: Yes Review of Systems - Review of Systems Constitutional: No symptoms reported EENT: No symptoms reported Cardiovascular: No symptoms reported Respiratory: No symptoms reported Gastrointestinal: No symptoms reported Genitourinary: No symptoms reported Female Genitourinary: No symptoms reported Musculoskeletal: No symptoms reported Skin: Rash Hematologic/Lymphatic: No symptoms reported Neurological/Psychological: No symptoms reported -: Yes All other systems reviewed and negative Physical Exam - Vital signs Vitals: Temp Pulse Resp BP Pulse Ox 98.4 F 96 18 112/75 100 03/09/17 20:18 03/09/17 20:18 03/09/17 20:18 03/09/17 20:18 03/09/17 20:18 Interpretation: Normal - General General appearance: Appears well, Alert - HEENT Head: Normocephalic, Atraumatic Eyes: Normal Pupils: PERRL - Respiratory Respiratory status: No respiratory distress Chest status: Nontender Breath sounds: Normal Chest palpation: Normal - Cardiovascular Rhythm: Regular Heart sounds: Normal auscultation Murmur: No - Abdominal Inspection: Normal Distension: No distension Bowel sounds: Normal Tenderness: Nontender Organomegaly: No organomegaly - Back Back: Normal, Nontender - Extremities General upper extremity: Normal inspection, Nontender, Normal color, Normal ROM , Normal temperature General lower extremity: Normal inspection, Nontender, Normal color, Normal ROM , Normal temperature, Normal weight bearing. No: Yolette's sign - Neurological Neuro grossly intact: Yes Cognition: Normal Orientation: AAOx4 [place] Coma Scale Eye Opening: Spontaneous [place] Coma Scale Verbal: Oriented [place] Coma Scale Motor: Obeys Commands Demetrice Coma Scale Total: 15 Speech: Normal Motor strength normal: LUE, RUE, LLE, RLE Sensory: Normal - Psychological Associated symptoms: Normal affect, Normal mood - Skin Skin Temperature: Warm Skin Moisture: Dry Skin Color: Normal Location of irregularity: Neck, Back, Extremities - both arms Character of irregularity: Erythematous Irregularity with: Tenderness, Thickening, Inflammation, Other - Patient has a few cracked areas on the arms. Rash is much worse on the antecubital area patient had dressings with packing tape on the arms and stated that they she had open bleeding areas but no open bleeding areas noted. Course - Re-evaluation Re-evalutation: 03/09/17 21:[address] le for the rash. He agreed with the treatment plan that I had in place for Vistaril by mouth hydrocortisone ointment to the skin and Pepcid by mouth. Will discharge patient home to follow-up with steel rule inspector. - Vital Signs Vital signs: Temp Pulse Resp BP Pulse Ox 98.4 F 96 18 112/75 100 03/09/17 20:18 03/09/17 20:18 03/09/17 20:18 03/09/17 20:18 03/09/17 20:18 Discharge - Discharge Clinical Impression: Rash and nonspecific skin eruption Condition: Stable Disposition: HOME, SELF-CARE Instructions: Family Physicians / Practices Additional Instructions: Atopic Dematitis (Eczema) You have atopic dermatitis, commonly called eczema. This is a chronic allergic skin condition. It often occurs in families with asthma and hay fever. The skin develops patches of redness, itching and scaling. Eczema often affects the back of the neck, back of the legs, and front of the arms. In children it affects the back of the knees, front of the elbows, and the cheeks. Itching is the main symptom. Eczema can be triggered by dryness, heat, sweating, and detergents or soap. Scratching makes the rash worse. Food or skin allergy can cause eczema. Emotional stress may also be a factor. Symptoms may get better or worse spontaneously. Generally, the treatment consists of: (1) avoid hot-water baths, (2) avoid using soap on your skin, (3) apply a cortisone ointment as needed, and (4) use antihistamines for itching. For severe episodes, oral cortisone medication may be required. Call the doctor if you get worse despite treatment, or if signs of infection occur -- such as spreading redness, red streaks, swollen glands, swelling, or fever. Antihistamines An antihistamine has been prescribed to control your symptoms. Antihistamines are used for many reasons, including itching, watering eyes, runny nose, allergic swelling, hives, and insect stings. Antihistamines may cause drowsiness, especially with the first dose. Do not operate machinery or drive while under the effects of the medication. Other common side effects include dry mouth and eyes. In older persons, antihistamines can occasionally cause urinary retention, constipation, and trouble focusing the eyes. Do not combine the medication with alcohol, or with any other medication without talking to your doctor. Acid-Suppressing Medication You have a prescription for medicine which reduces the stomach's secretion of acid. Examples include Zantac, Tagament, and Pepcid. These drugs are often used to allow healing of ulcers or esophagitis. They may be needed to prevent recurrence of ulcers in some patients, or to prevent damage from acid reflux in the esophagus. Take all medication as prescribed, even after the pain is gone. Regular antacids may be added as needed if you have symptoms while taking this medicine. These medications sometimes are prescribed for allergic reactions because they have anti-histaminic effects and relieve the rash and itching of the reaction. There are usually no side effects from this medication. But, in rare cases and particularly in the elderly, serious problems can occur. Contact your doctor if there is fever, rash, hallucinations, confusion, or unusual bruising. Contact your doctor at once if you develop lightheadedness, black or bloody stool, or bloody vomitus. FOLLOW-UP CARE: If you have been referred to a physician for follow-up care, call the physician s office for an appointment as you were instructed or within the next two days. If you experience worsening or a significant change in your symptoms, notify the physician immediately or return to the Emergency Department at any time for re-evaluation. Prescriptions: Hydroxyzine Pamoate [Vistaril 50 mg Capsule] 50 mg PO Q12HP PRN #30 capsule PRN Reason: Famotidine [Pepcid 20 mg Tablet] 20 mg PO DAILY #20 tablet Hydrocortisone Acetate [Hydrocortisone] 28 gm TP BID #1 oint..gm. Referrals: SCOTT PEREIRA, [ACTIVE STAFF] - Follow up as needed
[2017-03-09] MEDS ORDERED: HYDROCORTISONE 1% OINTMENT 28.35 GM ONE (21:28)
== END 2017-03-09 22:05 | disposition home or self-care (01) ==
LOC: ER 19:57
DX: R21 Rash and other nonspecific skin eruption (principal); E03.9 Hypothyroidism, unspecified; Z98.51 Tubal ligation status
CPT/HCPCS: 99282; J3490

== ENCOUNTER 2017-06-20 10:32 | Emergency (ER) | payer SELFPAY ==
[2017-06-20] MEDS ORDERED: PHENAZOPYRIDINE HCL 100 MG TABLET PO ONE (10:49)
--- NOTE | 2017-06-20 10:51 | ER Document Report ---
ED Medical Screen (RME) - General Chief Complaint: Urinary Problem Stated Complaint: BLLOD IN URINE Time Seen by Provider: 06/20/17 10:49 Notes: RME DISCLOSURE I have seen this patient as part of a Rapid Medical Evaluation and, if applicable, placed any initially appropriate orders. The patient will be seen and fully evaluated, including a full history and physical exam, by a provider ( in Main ED or Fast Track) when a room becomes available. 26-year-old female here with complaints of burning with urination and bloody urine ongoing for the past 7 days. She also complains of itchy skin and reports that she was seen recently and given a prescription for a cream that has caused her skin to change colors. TRAVEL OUTSIDE OF THE [place] IN LAST 30 DAYS: No - Related Data Allergies/Adverse Reactions: No Known Allergies Allergy (Verified 06/20/17 10:38) Past Medical History - Social History Chew tobacco use (# tins/day): No Frequency of alcohol use: None Drug Abuse: None Pulmonary Medical History: Reports: Hx Asthma Denies: Hx Tuberculosis Neurological Medical History: Reports: Hx Migraine Endocrine Medical History: Reports: Hx Hypothyroidism - Hashimotos Disease Renal/ Medical History: Denies: Hx Ectopic , Hx Peritoneal Dialysis Musculoskeltal Medical History: Reports Hx Musculoskeletal Deformity - Scoliosis Skin Medical History: Reports Hx Eczema Psychiatric Medical History: Reports: Hx Depression Past Surgical History: Reports: Hx Tubal Ligation. Denies: Hx Pacemaker - Immunizations Immunizations up to date: Yes Hx Diphtheria, Pertussis, Tetanus Vaccination: Yes Physical Exam - Vital signs Vitals: Temp Pulse Resp BP Pulse Ox 97.7 F 83 16 145/79 H 100 06/20/17 10:43 06/20/17 10:43 06/20/17 10:43 06/20/17 10:43 06/20/17 10:43 Course - Vital Signs Vital signs: Temp Pulse Resp BP Pulse Ox 97.7 F 83 16 145/79 H 100 06/20/17 10:43 06/20/17 10:43 06/20/17 10:43 06/20/17 10:43 06/20/17 10:43
[2017-06-20 11:09] LABS: APPEARANCE,URINE SLIGHTLY-CLOUDY; BILIRUBIN,URINE NEGATIVE (NEGATIVE); COLOR,URINE YELLOW; GLUCOSE, URINE NEGATIVE (NEGATIVE); KETONES,URINE NEGATIVE (NEGATIVE); LEUKOCYTE ESTERASE,URINE SMALL (NEGATIVE); NITRITE,URINE POSITIVE (NEGATIVE); PROTEIN,URINE 30 mg/dL (NEGATIVE); URINE SPECIFIC GRAVITY 1.023
--- NOTE | 2017-06-20 11:10 | ER Document Report ---
HPI - HPI Patient complains to provider of: Urinary symptoms Onset: Yesterday Onset/Duration: Gradual Quality of pain: Burning Pain Level: 4 Context: Patient presents complaining of hematuria, dysuria and frequency that started yesterday. Patient additionally reports itchy skin rash to her trunk and extremities that has gradually been worsening over the past 3 months. Patient denies any new foods, medications or detergents. Associated Symptoms: Other - Dysuria, hematuria, frequency. denies: Fever Exacerbated by: Denies Relieved by: Denies Similar symptoms previously: No Recently seen / treated by doctor: No - ROS ROS below otherwise negative: Yes Systems Reviewed and Negative: Yes All other systems reviewed and negative - CONSTITUTIONAL Constitutional: DENIES: Fever - GASTROINTESTINAL Gastrointestinal: DENIES: Abdominal Pain, Nausea, Patient vomiting - URINARY Urinary: REPORTS: Dysuria, Urgency, Frequency - x 1 wk - DERM Skin Problems: Rash Past Medical History - General Information source: Patient - Social History Smoking Status: Never Smoker Chew tobacco use (# tins/day): No Frequency of alcohol use: Occasional Drug Abuse: None Occupation: [employer] Family History: Arthritis, CAD, CVA, DM, Hyperlipidemia, Hypertension, Malignancy, Thyroid Disfunction, Other Patient has suicidal ideation: No Patient has homicidal ideation: No Pulmonary Medical History: Reports: Hx Asthma Denies: Hx Tuberculosis Neurological Medical History: Reports: Hx Migraine Endocrine Medical History: Reports: Hx Hypothyroidism - Hashimotos Disease Renal/ Medical History: Denies: Hx Ectopic , Hx Peritoneal Dialysis Musculoskeltal Medical History: Reports Hx Musculoskeletal Deformity - Scoliosis Skin Medical History: Reports Hx Eczema Psychiatric Medical History: Reports: Hx Depression Past Surgical History: Reports: Hx Tubal Ligation. Denies: Hx Pacemaker - Immunizations Immunizations up to date: Yes Hx Diphtheria, Pertussis, Tetanus Vaccination: Yes Vertical Provider Document - CONSTITUTIONAL Agree With Documented VS: Yes Exam Limitations: No Limitations General Appearance: WD/WN, No Apparent Distress - INFECTION CONTROL TRAVEL OUTSIDE OF THE [place] IN LAST 30 DAYS: No - HEENT HEENT: Atraumatic, Normal ENT Exam, Normocephalic - NECK Neck: Normal Inspection, Supple. negative: Lymphadenopathy-Left, Lymphadenopathy-Right - RESPIRATORY Respiratory: Breath Sounds Normal, No Respiratory Distress O2 Sat by Pulse Oximetry: 100 - CARDIOVASCULAR Cardiovascular: Regular Rate, Regular Rhythm, No Murmur - GI/ABDOMEN Gastrointestinal: Abdomen Soft - BACK Back: Normal Inspection. negative: CVA Tenderness-Right, CVA Tenderness-Left - MUSCULOSKELETAL/EXTREMETIES Musculoskeletal/Extremeties: MAEW - NEURO Level of Consciousness: Awake, Alert, Appropriate Motor/Sensory: No Motor Deficit - DERM Integumentary: Warm, Dry, Rash - Diffuse rash to extremities upper eyelids and trunk, area thickened, excoriated areas Course - Re-evaluation Re-evalutation: 06/20/17 11:22 Patient states she has concerns about sexually transmitted infection and would like to be tested. Patient states that her boyfriend cheated on her and that the person that he cheated on her with has trichomonas. - Vital Signs Vital signs: Temp Pulse Resp BP Pulse Ox 97.7 F 83 16 145/79 H 100 06/20/17 10:43 06/20/17 10:43 06/20/17 10:43 06/20/17 10:43 06/20/17 10:43 - Laboratory Laboratory results interpreted by me: 06/20/17 11:14 Labs- Entire Visit 06/20/17 10:55 Urine Color YELLOW Urine Appearance SLIGHTLY-CLOUDY Urine pH 6.0 Ur Specific [place] 1.023 Urine Protein 30 H Urine Glucose (UA) NEGATIVE Urine Ketones NEGATIVE Urine Blood MODERATE H Urine Nitrite POSITIVE H Urine Bilirubin NEGATIVE Urine Urobilinogen 2.0 H Ur Leukocyte Esterase SMALL H Urine WBC (Auto) 53 Urine RBC (Auto) 49 Urine Bacteria (Auto) 2+ Squamous Epi Cells Auto 6 Urine Mucus (Auto) FEW Urine Ascorbic Acid NEGATIVE Urine HCG, Qual NEGATIVE Discharge - Discharge Clinical Impression: Skin rash, Elevated blood pressure reading UTI (urinary tract infection) Qualifiers: Urinary tract infection type: site unspecified Hematuria presence: with hematuria Qualified Code(s): N39.0 - Urinary tract infection, site not specified Condition: Stable Disposition: HOME, SELF-CARE Instructions: Cephalexin ([facility]), Steroid Medication, Urinary Anesthetic Agent ( [facility]), Urinary Tract Infection ([facility]) Additional Instructions: Return immediately for any new or worsening symptoms Followup with your primary care provider, call tomorrow to make a followup appointment Follow-up with a primary doctor for further evaluation, call tomorrow for an appointment Prescriptions: Cephalexin Monohydrate [Keflex 500 mg Capsule] 500 mg PO Q6H 7 Days capsule Hydroxyzine HCl [Atarax 25 mg Tablet] 1 - 2 tab PO QID #15 tablet Phenazopyridine HCl [Pyridium 200 mg Tablet] 200 mg PO TID #15 tablet Prednisone [Deltasone 5 mg Tablet] 5 mg PO ASDIR PRN #100 tablet PRN Reason: Forms: Return to Work Referrals: [facility] [Provider Group] - Follow up as needed [facility] [Provider Group] - Follow up as needed
[2017-06-20] MEDS ORDERED: CEPHALEXIN 500 MG CAPSULE PO ONE (11:14)
[2017-06-20] MEDS ORDERED: AZITHROMYCIN 250 MG TABLET PO ONE (11:36)
[2017-06-20] MEDS ORDERED: CEFTRIAXONE INJ 250 MG VIAL IM ONE (11:36)
[2017-06-20] MEDS ORDERED: PENICILLIN G BENZATHINE 1.2 MILLION UNIT/2 ML DISP.SYRIN IM ONE (11:36)
[2017-06-20] MEDS ORDERED: LIDOCAINE 1% INJ-PF (10 MG/ML) 30 ML SDV INJ ONE (11:36)
[2017-06-20 11:53] LABS: BACTERIA (WET MOUNT) 3+ BACTERIA SEEN; EPITHELIALS (WET MOUNT) 3+ EPITHELIALS SEEN; T.VAGINALIS (WET MOUNT) NO TRICHOMONAS SEEN; WBCS (WET MOUNT) FEW WBCS SEEN; YEAST (WET MOUNT) NO YEAST SEEN
[2017-06-20 13:15] LABS: CHLAM PCR NOT DETECTED (NOT DETECT); GON PCR NOT DETECTED (NOT DETECT)
[2017-06-20 13:30] VITALS: BP 119/76
== END 2017-06-20 13:24 | disposition home or self-care (01) ==
LOC: ER 10:32
DX: N39.0 Urinary tract infection, site not specified (principal); R31.9 Hematuria, unspecified; R21 Rash and other nonspecific skin eruption; R03.0 Elevated blood-pressure reading, without diagnosis of hypertension; J45.909 Unspecified asthma, uncomplicated; Z20.2 Contact with and (suspected) exposure to infections with a predominantly sexual mode of transmission
CPT/HCPCS: 99283; 96372; 36415; 87086; 87210; 81025; 87088; 86592; 81001; 87186; 87491; 87591; J3490 ×2; J0561; J0696

== ENCOUNTER 2017-07-08 10:06 | Emergency (ER) | payer SELFPAY ==
[2017-07-08] MEDS ORDERED: METHYLPREDNISOLONE ACETATE INJ 80 MG/1 ML VIAL IM ONE (11:15)
[2017-07-08] MEDS ORDERED: OXYCODONE-ACETAMINOPHEN 5-325 MG TABLET PO ONE (11:16)
[2017-07-08] MEDS ORDERED: KETOROLAC TROMETHAMINE 60 MG/2 ML SDV IM ONE (11:16)
--- NOTE | 2017-07-08 11:22 | ER Document Report ---
ED General - General Chief Complaint: Skin Problem Stated Complaint: SKIN PROBLEM Time Seen by Provider: 07/08/17 11:01 Notes: HPI-26 years old female with a history of severe eczema involving entire body, multiple ED visits, intractable allergies, presents today with whole body pain over the skin as well as rash. Which is more prominent for the last few days. Denies any fever chills or other constitutional symptoms REVIEW OF SYSTEMS: CONSTITUTIONAL : Denies fever, chills, or sweats. Denies recent illness. EENT: Denies eye, ear, throat, or mouth pain or symptoms. Denies nasal or sinus congestion or discharge. Denies throat, tongue, or mouth swelling or difficulty swallowing. CARDIOVASCULAR: Denies chest pain. Denies palpitations or racing or irregular heart beat. Denies ankle edema. RESPIRATORY: Denies cough, cold, or chest congestion. Denies shortness of breath, difficulty breathing, or wheezing. GASTROINTESTINAL: Denies abdominal pain or distention. Denies nausea, vomiting , or diarrhea. Denies blood in vomitus, stools, or per rectum. Denies black, tarry stools. Denies constipation. GENITOURINARY: Denies difficulty urinating, painful urination, burning, frequency, blood in urine, or discharge. FEMALE GENITOURINARY: Denies vaginal bleeding, heavy or abnormal periods, irregular periods. Denies vaginal discharge or odor. MUSCULOSKELETAL: Denies back or neck pain or stiffness. Denies joint pain or swelling. SKIN: Denies rash, lesions or sores. HEMATOLOGIC : Denies easy bruising or bleeding. LYMPHATIC: Denies swollen, enlarged glands. NEUROLOGICAL: Denies confusion or altered mental status. Denies passing out or loss of consciousness. Denies dizziness or lightheadedness. Denies headache. Denies weakness or paralysis or loss of use of either side. Denies problems with gait or speech. Denies sensory loss, numbness, or tingling. Denies seizures. PSYCHIATRIC: Denies anxiety or stress. Denies depression, suicidal ideation, or homicidal ideation. ALL OTHER SYSTEMS REVIEWED AND NEGATIVE. PHYSICAL EXAMINATION: GENERAL: Well-appearing, well-nourished and in no acute distress. HEAD: Atraumatic, normocephalic. EYES: Pupils equal round and reactive to light, extraocular movements intact, conjunctiva are normal. ENT: Nares patent, oropharynx clear without exudates. Moist mucous membranes. NECK: Normal range of motion, supple without lymphadenopathy LUNGS: Breath sounds clear to auscultation bilaterally and equal. No wheezes rales or rhonchi. HEART: Regular rate and rhythm without murmurs ABDOMEN: Soft, nontender, nondistended abdomen. No guarding, no rebound. No masses appreciated. Female : deferred Musculoskeletal: Normal range of motion, no pitting or edema. No cyanosis. NEUROLOGICAL: Cranial nerves grossly intact. Normal speech, normal gait. Normal sensory, motor exams PSYCH: Normal mood, normal affect. SKIN: Scaly, nonerythematous rash was noted diffusely throughout the body with thickening of the skin. And very sensitive skin to touch. Dictation was performed using [employer] voice recognition software TRAVEL OUTSIDE OF THE [place] IN LAST 30 DAYS: No - Related Data Allergies/Adverse Reactions: No Known Allergies Allergy (Verified 07/08/17 10:06) Past Medical History - General Information source: Patient - Social History Smoking Status: Never Smoker Chew tobacco use (# tins/day): No Frequency of alcohol use: None Drug Abuse: None Family History: Arthritis, CAD, CVA, DM, Hyperlipidemia, Hypertension, Malignancy, Thyroid Disfunction, Other Patient has suicidal ideation: No Patient has homicidal ideation: No Pulmonary Medical History: Reports: Hx Asthma Denies: Hx Tuberculosis Neurological Medical History: Reports: Hx Migraine Endocrine Medical History: Reports: Hx Hypothyroidism - Hashimotos Disease Renal/ Medical History: Denies: Hx Ectopic , Hx Peritoneal Dialysis Musculoskeltal Medical History: Reports Hx Musculoskeletal Deformity - Scoliosis Skin Medical History: Reports Hx Eczema Psychiatric Medical History: Reports: Hx Depression Past Surgical History: Reports: Hx Tubal Ligation. Denies: Hx Pacemaker - Immunizations Immunizations up to date: Yes Hx Diphtheria, Pertussis, Tetanus Vaccination: Yes Review of Systems - Review of Systems Notes: Unremarkable Constitutional: denies: No symptoms reported, See HPI, Chills, Diaphoresis, Fever, Malaise, Weakness, Other, Weight gain, Weight loss, Recent illness Cardiovascular: denies: No symptoms reported, See HPI, Chest pain, Palpitations , Heart racing, Orthopnea, Dyspnea, Syncope, Dizziness, Lightheaded, Edema, Other, Paroxysmal Nocturnal Dysp Respiratory: denies: No symptoms reported, See HPI, Cough, Hurts to breathe, Hemoptysis, Short of breath, Sputum, Stridor, Wheezing, Other Gastrointestinal: denies: No symptoms reported, See HPI, Abdomen distended, Abdominal pain, Diarrhea, Nausea, Vomiting, Constipation, Blood streaked bowels , Poor appetite, Poor fluid intake, Blood in vomit, Black stools, Rectal bleeding, Last bowel movement, Fecal incontinence, Other Genitourinary: denies: No symptoms reported, See HPI, Burning, Dysuria, Discharge, Frequency, Flank pain, Hematuria, Incontinence, Pain, Urgency, Retention, Other Female Genitourinary: denies: No symptoms reported, See HPI, Last menstrual period, , Post menopausal, Heavy/abnormal periods, Irregular period, Vaginal bleeding, Vaginal discharge, Vaginal odor, Painful intercourse, Other Skin: Rash Hematologic/Lymphatic: denies: No symptoms reported, See HPI, Anemia, Blood clots, Easy bleeding, Easy bruising, Enlarged lymph nodes, Swollen glands, Other Neurological/Psychological: denies: No symptoms reported, See HPI, Confusion, Dementia, Depression, Hallucinations, Anxiety, Homicidal ideation, Sensory change, Weakness, Gait changes, Loss of power, Paralysis, Seizure, Lost consciousness, Headaches, Speech impairment, Numbness, Suicidal ideation, Tingling, Tremor, Other Physical Exam - Vital signs Vitals: Temp Pulse Resp BP Pulse Ox 99.0 F 115 H 18 124/71 100 07/08/17 10:11 07/08/17 10:11 07/08/17 10:11 07/08/17 10:11 07/08/17 10:11 Course - Re-evaluation Re-evalutation: 07/08/17 11:19 She was given Depo-Medrol, Toradol. - Vital Signs Vital signs: Temp Pulse Resp BP Pulse Ox 99.0 F 115 H 18 124/71 100 07/08/17 10:11 07/08/17 10:11 07/08/17 10:11 07/08/17 10:11 07/08/17 10:11 Discharge - Discharge Clinical Impression: Severe eczema Condition: Fair Disposition: HOME, SELF-CARE Instructions: Atopic Dermatitis (Eczema) ([facility]) Prescriptions: Montelukast Sodium [Singulair 10 mg Tablet] 10 mg PO QHS #30 tablet Betamethasone Dipropionate 60 ml TP BID #120 lotion Oxycodone HCl/Acetaminophen [Percocet 5-325 mg Tablet] 1 tab PO ASDIR PRN #15 tab PRN Reason: Prednisone [Sterapred Ds] 1 pkg PO ASDIR PRN 12 Days tab.ds.pk PRN Reason:
[2017-07-08 12:11] VITALS: BP 138/78
== END 2017-07-08 12:22 | disposition home or self-care (01) ==
LOC: ER 10:06
DX: L30.9 Dermatitis, unspecified (principal); M79.1 Myalgia; J45.909 Unspecified asthma, uncomplicated
CPT/HCPCS: 99283; 96372; J1885; J1040

== ENCOUNTER 2017-08-06 19:58 | Emergency (ER) | payer SELFPAY ==
[2017-08-06 20:17] VITALS: BP 121/76
[2017-08-06] MEDS ORDERED: KETOROLAC TROMETHAMINE INJ/PF 30 MG/1 ML SDV IM ONE (21:12)
[2017-08-06] MEDS ORDERED: METHYLPREDNISOLONE INJ 125 MG/2 ML SDV IM ONE (21:12)
[2017-08-06] MEDS ORDERED: HYDROCODONE/ACETAMINOPHEN 5-325 MG (6 TAB/ER DISP) PO PRN (21:16)
--- NOTE | 2017-08-06 21:19 | ER Document Report ---
HPI - HPI Pain Level: 4 Notes: Patient is a 26-year-old female with a history of chronic intermittent eczema who presents to the ED complaining of generalized eczema flareup over the last several days. Patient states that she has been seen by the emergency department on multiple occasions for the same complaint, but has not been able to get seen by dermatology due to insurance issues. Patient states that the latest treatment worked well for her and cleared up her skin, but the symptoms returned thereafter. Patient states that the rash is painful and pruritic. Patient states her skin is also very dry despite the use of moisturizers. She is otherwise eating and drinking without any difficulties. She is urinating normally and having normal bowel movements. Denies any drug allergies. Denies any headache, fever, neck pain, URI, sore throat, chest pain, palpitations, syncope, cough, shortness of breath, wheeze, dyspnea, abdominal pain, nausea/ vomiting/diarrhea, urinary retention, dysuria, hematuria, loss of control of bowel or bladder, numbness/tingling, muscle paralysis/weakness. - ROS Systems Reviewed and Negative: Yes All other systems reviewed and negative - CONSTITUTIONAL Constitutional: DENIES: Fever, Chills - REPRODUCTIVE Reproductive: REPORTS: : - MUSCULOSKELETAL Musculoskeletal: DENIES: Extremity pain Past Medical History - Social History Smoking Status: Never Smoker Frequency of alcohol use: None Drug Abuse: None Family History: Arthritis, CAD, CVA, DM, Hyperlipidemia, Hypertension, Malignancy, Thyroid Disfunction, Other Patient has suicidal ideation: No Patient has homicidal ideation: No Pulmonary Medical History: Reports: Hx Asthma Denies: Hx Tuberculosis Neurological Medical History: Reports: Hx Migraine Endocrine Medical History: Reports: Hx Hypothyroidism - Hashimotos Disease Renal/ Medical History: Denies: Hx Ectopic , Hx Peritoneal Dialysis Musculoskeltal Medical History: Reports Hx Arthritis, Reports Hx Musculoskeletal Deformity - Scoliosis Skin Medical History: Reports Hx Eczema Psychiatric Medical History: Reports: Hx Depression Past Surgical History: Reports: Hx Tubal Ligation. Denies: Hx Pacemaker - Immunizations Immunizations up to date: Yes Hx Diphtheria, Pertussis, Tetanus Vaccination: Yes Vertical Provider Document - CONSTITUTIONAL Agree With Documented VS: Yes Notes: PHYSICAL EXAMINATION: GENERAL: Well-appearing, well-nourished and in no acute distress. HEAD: Atraumatic, normocephalic. EYES: Pupils equal round and reactive to light, extraocular movements intact, sclera anicteric, conjunctiva are normal. ENT: EAC clear b/l. TM's intact b/l without erythema, fluid, or perforation. Nares patent and without discharge. oropharynx clear without exudates. No tonsilar hypertrophy or erythema. Moist mucous membranes. No sinus tenderness. NECK: Normal range of motion, supple without lymphadenopathy LUNGS: Breath sounds clear to auscultation bilaterally and equal. No wheezes rales or rhonchi. HEART: Regular rate and rhythm without murmurs, rubs, gallops. ABDOMEN: Soft, nontender, nondistended abdomen. No guarding, no rebound. No masses appreciated. Normal bowel sounds present. No CVA tenderness bilaterally. Musculoskeletal: FROM to passive/active. Strength 5+/5. Extremities: No cyanosis, clubbing, or edema b/l. Peripheral pulses 2+. Capillary refill less than 3 seconds. NEUROLOGICAL: Cranial nerves grossly intact. Normal speech, normal gait. Normal sensory, motor exams PSYCH: Normal mood, normal affect. SKIN: Scaly, nonerythematous rash throughout the body with thickening of the skin and scant fissuring. - INFECTION CONTROL TRAVEL OUTSIDE OF THE [place] IN LAST 30 DAYS: No Course - Re-evaluation Re-evalutation: 08/06/17 21:15 Patient is an afebrile, well-hydrated, 26-year-old female who presents to the ED with diffusely generalized moderate to severe eczema. Vitals are acceptable. PE is otherwise unremarkable. No labs or imaging warranted at this time based on H&P. Patient request a same/similar treatment as the last time for her symptoms. Solu-Medrol given IM today as well as Toradol. I will be sending her home with betamethasone cream as well as a [place] dispense pack. I will also give her some hydroxyzine to help with the pruritus. Conservative measures otherwise for symptoms with moisturizers. Recheck with your PCM in 3- 5 days. Schedule an appointment dermatology. Return to the ED with any worsening/concerning symptoms otherwise as reviewed discharge. Patient is in agreement. - Vital Signs Vital signs: Temp Pulse Resp BP Pulse Ox 97.7 F 91 16 121/76 100 08/06/17 20:16 08/06/17 20:16 08/06/17 20:16 08/06/17 20:16 08/06/17 20:16 Discharge - Discharge Clinical Impression: Eczema Qualifiers: Eczema type: unspecified Qualified Code(s): L30.9 - Dermatitis, unspecified Condition: Stable Disposition: HOME, SELF-CARE Additional Instructions: Keep the skin clean Wash with soft soap and water Tylenol/ibuprofen if needed Triple antibiotic ointment daily for breaks in the skin Moisturizers daily Take medication as directed Monitor for any worsening symptoms Recheck with your PCM in 3-5 days Schedule a consult with Dermatology for ongoing/worsening symptoms Return to the ED with any worsening symptoms and/or development of fever, headache, chest pain, palpitations, syncope, shortness of breath, trouble breathing, abdominal pain, n/v/d, abscess, purulent discharge, red streaks, worsening swelling, or other worsening symptoms that are concerning to you. Prescriptions: Betamethasone Dipropionate 1 applic TP BID #60 ml Prednisone [Deltasone 20 mg Tablet] 1 tab PO ASDIR PRN 5 Days #18 tablet PRN Reason: Referrals: SCOTT PEREIRA DO [ACTIVE STAFF] - Follow up as needed
== END 2017-08-06 22:08 | disposition home or self-care (01) ==
LOC: ER 19:58
DX: L30.9 Dermatitis, unspecified (principal); E06.3 Autoimmune thyroiditis; Z98.51 Tubal ligation status
CPT/HCPCS: 99283; 96372; J2930; J1885

== ENCOUNTER 2017-11-02 07:57 | Emergency (ER) | payer SELFPAY ==
[2017-11-02 08:04] VITALS: BP 125/76
[2017-11-02] MEDS ORDERED: PREDNISONE 20 MG TABLET PO ONE (08:55)
--- NOTE | 2017-11-02 09:10 | ER Document Report ---
HPI - HPI Patient complains to provider of: Body pruritus Onset: Other - Several months, worse over the past few days Onset/Duration: Persistent Quality of pain: Burning Pain Level: 4 Context: Patient complains of a flareup of her eczema. Patient complains of diffuse body pruritus with rash. Patient states that her skin will occasionally crack in certain areas as it gets too dry. Patient states she has not been using any type of emollient as it wilcox when she applies the cream to her skin. Patient denies any fever. Patient does not see dermatology for this issue. Patient states she has had really bad eczema since the of her child. Associated Symptoms: Other - Skin rash. denies: Fever, Headache Exacerbated by: Denies Relieved by: Denies Similar symptoms previously: Yes Recently seen / treated by doctor: No - ROS ROS below otherwise negative: Yes Systems Reviewed and Negative: Yes All other systems reviewed and negative - CONSTITUTIONAL Constitutional: DENIES: Fever, Chills - NEURO Neurology: DENIES: Headache - GASTROINTESTINAL Gastrointestinal: DENIES: Nausea, Patient vomiting - DERM Skin Color: Normal Skin Problems: Rash Past Medical History - General Information source: Patient - Social History Smoking Status: Never Smoker Frequency of alcohol use: Occasional Drug Abuse: None Occupation: Call center Lives with: Family Family History: Arthritis, CAD, CVA, DM, Hyperlipidemia, Hypertension, Malignancy, Thyroid Disfunction, Other Pulmonary Medical History: Reports: Hx Asthma Denies: Hx Tuberculosis Neurological Medical History: Reports: Hx Migraine Endocrine Medical History: Reports: Hx Hypothyroidism - Hashimotos Disease Renal/ Medical History: Denies: Hx Ectopic , Hx Peritoneal Dialysis Musculoskeletal Medical History: Reports Hx Arthritis, Reports Hx Musculoskeletal Deformity - Scoliosis Skin Medical History: Reports Hx Eczema Psychiatric Medical History: Reports: Hx Depression Past Surgical History: Reports: Hx Tubal Ligation. Denies: Hx Pacemaker - Immunizations Immunizations up to date: Yes Hx Diphtheria, Pertussis, Tetanus Vaccination: Yes Vertical Provider Document - CONSTITUTIONAL Agree With Documented VS: Yes Exam Limitations: No Limitations General Appearance: WD/WN, No Apparent Distress - INFECTION CONTROL TRAVEL OUTSIDE OF THE [place] IN LAST 30 DAYS: No - HEENT HEENT: Atraumatic, Normal ENT Exam, Normocephalic - NECK Neck: Normal Inspection, Supple. negative: Lymphadenopathy-Left, Lymphadenopathy-Right - RESPIRATORY Respiratory: Breath Sounds Normal, No Respiratory Distress - CARDIOVASCULAR Cardiovascular: Regular Rate, Regular Rhythm, No Murmur - GI/ABDOMEN Gastrointestinal: Abdomen Soft, Abdomen Non-Tender - BACK Back: Normal Inspection - MUSCULOSKELETAL/EXTREMETIES Musculoskeletal/Extremeties: CHAYA KWOK - NEURO Level of Consciousness: Awake, Alert, Appropriate Motor/Sensory: No Motor Deficit - DERM Integumentary: Warm, Dry, Rash - Diffuse scaling rash to trunk and extremities Course - Re-evaluation Re-evalutation: 11/02/17 Patient encouraged to follow-up with dermatology for further management of her eczema. Patient encouraged to use emollients at least twice a day. No concern for cellulitis. - Vital Signs Vital signs: Temp Pulse Resp BP Pulse Ox 97.4 F 90 16 125/76 99 11/02/17 08:03 11/02/17 08:03 11/02/17 08:03 11/02/17 08:03 11/02/17 08:03 Discharge - Discharge Clinical Impression: Eczema Qualifiers: Eczema type: unspecified Qualified Code(s): L30.9 - Dermatitis, unspecified Condition: Stable Disposition: HOME, SELF-CARE Instructions: Atopic Dermatitis (Eczema) ([facility]), Steroid Medication Additional Instructions: Return immediately for any new or worsening symptoms Followup with your primary care provider, call tomorrow to make a followup appointment Follow-up with a market research intern for further evaluation Use lotions to moisturize skin at least twice a day Prescriptions: Hydroxyzine HCl [Atarax 25 mg Tablet] 1 - 2 tab PO QID PRN #20 tablet PRN Reason: Prednisone [Deltasone 5 mg Tablet] 5 mg PO ASDIR PRN #100 tablet PRN Reason: Forms: Return to Work Referrals: SCOTT PEREIRA DO [ACTIVE STAFF] - Follow up in 3-5 days
== END 2017-11-02 09:20 | disposition home or self-care (01) ==
LOC: ER 07:57
DX: L30.9 Dermatitis, unspecified (principal); L29.9 Pruritus, unspecified; E03.9 Hypothyroidism, unspecified; Z98.51 Tubal ligation status
CPT/HCPCS: 99283; J7512

== ENCOUNTER 2017-11-27 08:46 | Emergency (ER) | payer SELFPAY ==
[2017-11-27] MEDS ORDERED: DIPHENHYDRAMINE HCL 50 MG/ML VIAL IV ONE (09:50)
[2017-11-27] MEDS ORDERED: RINGERS SOLUTION,LACTATED 1,000 ML IV ONE (09:50)
[2017-11-27] MEDS ORDERED: METHYLPREDNISOLONE INJ 125 MG/2 ML SDV IV ONE (09:50)
--- NOTE | 2017-11-27 09:52 | ER Document Report ---
ED Medical Screen (RME) - General Chief Complaint: Pain All Over Stated Complaint: BODY PAIN Time Seen by Provider: 11/27/17 09:49 Notes: 27 years old female with chronic history of exfoliating dermatitis, with on and off flareup, presents today again with another episode of flareup from yesterday giving rise to severe pain over the entire body over the skin, and also skin is peeling off. What triggers she does not know. Denies any fever chills or other constitutional symptoms. TRAVEL OUTSIDE OF THE [place] IN LAST 30 DAYS: No - Related Data Allergies/Adverse Reactions: No Known Allergies Allergy (Verified 11/27/17 09:36) Past Medical History Pulmonary Medical History: Reports: Hx Asthma Denies: Hx Tuberculosis Neurological Medical History: Reports: Hx Migraine Endocrine Medical History: Reports: Hx Hypothyroidism - Hashimotos Disease Renal/ Medical History: Denies: Hx Ectopic , Hx Peritoneal Dialysis Musculoskeltal Medical History: Reports Hx Arthritis, Reports Hx Musculoskeletal Deformity - Scoliosis Skin Medical History: Reports Hx Eczema Psychiatric Medical History: Reports: Hx Depression Past Surgical History: Reports: Hx Tubal Ligation. Denies: Hx Pacemaker - Immunizations Immunizations up to date: Yes Hx Diphtheria, Pertussis, Tetanus Vaccination: Yes Physical Exam - Vital signs Vitals: Temp Pulse Resp BP Pulse Ox 98.8 F 119 H 18 115/92 H 100 11/27/17 08:52 11/27/17 08:52 11/27/17 08:52 11/27/17 08:52 11/27/17 08:52 Course - Vital Signs Vital signs: Temp Pulse Resp BP Pulse Ox 98.8 F 119 H 18 115/92 H 100 11/27/17 08:52 11/27/17 08:52 11/27/17 08:52 11/27/17 08:52 11/27/17 08:52
[2017-11-27] MEDS ORDERED: DIPHENHYDRAMINE HCL 50 MG CAPSULE PO ONE (10:59)
[2017-11-27] MEDS ORDERED: PREDNISOLONE SOD PHOS 15 MG/5 ML ORAL SYRING PO ONE (11:00)
[2017-11-27] MEDS ORDERED: OXYCODONE-ACETAMINOPHEN 5-325 MG TABLET PO ONE (11:00)
--- NOTE | 2017-11-27 11:09 | ER Document Report ---
ED Skin Rash/Insect Bite/Abscs - General Chief Complaint: Pain All Over Stated Complaint: BODY PAIN Time Seen by Provider: 11/27/17 09:49 Notes: Patient with a history of eczema all of her life since childhood, presents with painful swelling and itching of her severe case of eczema. In 2014, she was determined to have atopic dermatitis, the more modern, up-to-date title for her illness. In the past, patient has been treated with steroids with some improvement. Also has asthma. Denies any other symptoms. No vomiting or diarrhea. No cough or cold or chest congestion. No shortness of breath. Denies any fever. History of Guerrero's thyroiditis treated with radiation in 2006. Scoliosis TRAVEL OUTSIDE OF THE [place] IN LAST 30 DAYS: No - Related Data Allergies/Adverse Reactions: No Known Allergies Allergy (Verified 11/27/17 09:36) Past Medical History - Social History Smoking Status: Smoker,Current Status Unk Chew tobacco use (# tins/day): No Frequency of alcohol use: None Drug Abuse: None Family History: Arthritis, CAD, CVA, DM, Hyperlipidemia, Hypertension, Malignancy, Thyroid Disfunction, Other Patient has suicidal ideation: No Patient has homicidal ideation: No Pulmonary Medical History: Reports: Hx Asthma Neurological Medical History: Reports: Hx Migraine Endocrine Medical History: Reports: Hx Hypothyroidism - Hashimotos Disease Musculoskeletal Medical History: Reports Hx Arthritis, Reports Hx Musculoskeletal Deformity - Scoliosis Skin Medical History: Reports Hx Eczema Psychiatric Medical History: Reports: Hx Depression Past Surgical History: Reports: Hx Tubal Ligation - Immunizations Immunizations up to date: Yes Hx Diphtheria, Pertussis, Tetanus Vaccination: Yes Review of Systems - Review of Systems Notes: CONSTITUTIONAL : Denies fever. CARDIOVASCULAR: Denies chest pain. RESPIRATORY: Denies cough, chest congestion, or shortness of breath. GASTROINTESTINAL: Denies abdominal pain or nausea, vomiting, or diarrhea. GENITOURINARY: Denies difficulty or painful urinating, urinary frequency, blood in urine. Physical Exam - Vital signs Vitals: Temp Pulse Resp BP Pulse Ox 98.8 F 119 H 18 115/92 H 100 11/27/17 08:52 11/27/17 08:52 11/27/17 08:52 11/27/17 08:52 11/27/17 08:52 Interpretation: Tachycardic - Mild Notes: PHYSICAL EXAMINATION: GENERAL: Patient has some very minimal swelling of her eyelids. Most likely secondary to her crying. HEAD: Atraumatic, normocephalic. NECK: Normal range of motion, supple. LUNGS: Breath sounds clear and equal bilaterally. HEART: Regular rate and rhythm without murmurs heard. ABDOMEN: Soft, nontender. No guarding or rebound or masses felt. Skin: Patient has very typical severe, chronic, exfoliative dermatitis of most of her entire body. There are no draining or suppurative areas of infectious process. Course - Re-evaluation Re-evalutation: 11/27/17 19:27 I stressed to the patient that her best likelihood of getting treated for her condition is at a teaching institution the medical school at [facility] or at [place] or may be even [place]. She says she would rather be taking care of her locally because of transportation problems. I pointed out to her that there are few or no e business consultant locally. I suggested she could try Dr. Bentley's office, but he is booked up well in advance and patient acknowledged that she is trying to see him, but his appointment are not available for 2 or 3 months from now. We attempted IV access to check some blood work and review of medications in that manner, but patient does not have any site for appropriate vascular access. I do not think her clinical presentation merits absolutely that she has to have labs and IV medication. This is a chronic long-standing desquamating condition that is very sad, but offers little hope for us to be able to do much for her here in our emergency department. - Vital Signs Vital signs: Temp Pulse Resp BP Pulse Ox 98.7 F 108 H 14 110/80 100 11/27/17 11:50 11/27/17 11:50 11/27/17 11:50 11/27/17 11:50 11/27/17 11:50 Discharge - Discharge Clinical Impression: Eczema, Atopic dermatitis Condition: Stable Disposition: HOME, SELF-CARE Additional Instructions: Atopic Dematitis (Eczema) You have atopic dermatitis, commonly called eczema. This is a chronic allergic skin condition. It often occurs in families with asthma and hay fever. The skin develops patches of redness, itching and scaling. Eczema often affects the back of the neck, back of the legs, and front of the arms. In children it affects the back of the knees, front of the elbows, and the cheeks. Itching is the main symptom. Eczema can be triggered by dryness, heat, sweating, and detergents or soap. Scratching makes the rash worse. Food or skin allergy can cause eczema. Emotional stress may also be a factor. Symptoms may get better or worse spontaneously. Generally, the treatment consists of: (1) avoid hot-water baths, (2) avoid using soap on your skin, (3) apply a cortisone cream as needed, and (4) use antihistamines for itching. For severe episodes, oral cortisone medication may be required. Call the doctor if you get worse despite treatment, or if signs of infection occur -- such as spreading redness, red streaks, swollen glands, swelling, or fever. STEROID MEDICATION: You have been given a medicine of the cortisone/steroid class. This medication is used to control inflammation or allergy. It is usually only given for a short period of time, until the acute process subsides. There are usually no side effects from short-term use of cortisone-like medications. Some persons feel an increased sense of well-being and are not sleepy at bedtime. Long-term use of cortisone medications is best avoided, unless required for a severe condition. If your condition does not remit, or relapses after the course of corticosteroid medication, you should consult your physician. ANTIHISTAMINES: An antihistamine has been given and/or prescribed to control your symptoms. Antihistamines are used for many reasons, including itching, watering eyes, runny nose, allergic swelling, hives, and insect stings. Antihistamines may cause drowsiness, especially with the first dose. Do not operate machinery or drive while under the effects of the medication. Other common side effects include dry mouth and eyes. In older persons, antihistamines can occasionally cause urinary retention, constipation, and trouble focusing the eyes. Do not combine the medication with alcohol, or with any other medication without talking to your doctor. USE OF DIPHENHYDRAMINE: The use of diphenhydramine (Benadryl) has been recommended to control allergic symptoms. The 25 mg strength is available over- the-counter, as well as the elixir. This antihistamine is used for many symptoms. It's useful for itching, watering eyes and nose, allergic swelling, hives, and insect stings. The medication can be repeated four times daily. Age Elixir (12.5 mg/tsp) 25 mg pill 2-3 yr 1/2 tsp 4-8 yr 1 tsp 9-14 yr 2 tsp one tab adult 1-2 tabs Antihistamines may cause drowsiness, especially with the first dose. Do not operate machinery or drive while under the effects of the medication. Do not combine the medication with alcohol, or with any other medication without talking to your doctor. You can buy Benadryl [id number] in all drugstores and grocery stores. Take 50 mg of Benadryl 4 times a day for itching. Oral Narcotic Medication You have been given a prescription for pain control. This medication is a narcotic. It's best taken with food, as nausea can result if taken on an empty stomach. Don't operate machinery or drive within six hours of taking this medication. Do not combine this medicine with alcohol, or with any medication which can cause sedation (such as cold tablets or sleeping pills) unless you get permission from the physician. Narcotics tend to cause constipation. If possible, drink plenty of fluids and eat a diet high in fiber and fruits. FOLLOW-UP CARE: If you have been referred to a physician for follow-up care, call the physician s office for an appointment as you were instructed or within the next two days. If you experience worsening or a significant change in your symptoms, notify the physician immediately or return to the Emergency Department at any time for re-evaluation. You need to follow-up with a e business consultant. I would recommend you contact [facility] in [place] or [facility] and try to arrange an appointment in their dermatology clinics. Prescriptions: Oxycodone HCl/Acetaminophen [Percocet 5-325 mg Tablet] 1 - 2 tab PO Q4H PRN #25 tablet PRN Reason: Prednisone [Deltasone 10 mg Tablet] 10 mg PO ASDIR PRN #21 tablet PRN Reason: Forms: Return to Work
[2017-11-27] MEDS ORDERED: PREDNISONE 20 MG TABLET PO ONE (11:23)
[2017-11-27 11:51] VITALS: BP 110/80
== END 2017-11-27 11:51 | disposition home or self-care (01) ==
LOC: ER 08:46
DX: L30.9 Dermatitis, unspecified (principal); L20.9 Atopic dermatitis, unspecified; F17.210 Nicotine dependence, cigarettes, uncomplicated; J45.909 Unspecified asthma, uncomplicated
CPT/HCPCS: 99283; J7512

== ENCOUNTER 2018-04-02 08:48 | Emergency (ER) | payer SELFPAY ==
[2018-04-02] MEDS ORDERED: IPRATROPIUM/ALBUTEROL 0.5-2.5 MG/3 ML AMPUL NEB ONE (09:32)
[2018-04-02] MEDS ORDERED: ALBUTEROL SULFATE 0.083% NEB 2.5 MG/3 ML AMPUL NEB ONE (09:32)
--- NOTE | 2018-04-02 09:34 | ER Document Report ---
ED Medical Screen (RME) - General Chief Complaint: Headache Stated Complaint: TROUBLE BREATHING AND SKIN RASH Time Seen by Provider: 04/02/18 09:27 TRAVEL OUTSIDE OF THE [place] IN LAST 30 DAYS: No - HPI Notes: 04/02/18 09:33 Patient is a 27-year-old female that presents to the emergency department for chief complaint of rash and asthma. Patient states that she has had increasing shortness of breath consistent with her asthma for the last few weeks. She has been using albuterol at home with some improvement. She also reports a itchy rash on the backs of her legs for the last week. ROS: GENERAL: Denies fever of chills CV: Denies chest pain PHYSICAL EXAMINATION: GENERAL: Well-appearing, well-nourished and in no acute distress. HEAD: Atraumatic, normocephalic. EYES: Pupils equal round extraocular movements intact, conjunctiva are normal. ENT: Nares patent NECK: Normal range of motion LUNGS: No respiratory distress Musculoskeletal: Normal range of motion NEUROLOGICAL: Normal speech, normal gait. PSYCH: Normal mood, normal affect. MDM: Patient seen and examined for rapid initial assessment. Vital signs reviewed. A comprehensive ED assessment and evaluation of the patient, analysis of test results and completion of the medical decision making process will be conducted by additional ED providers. - Related Data Allergies/Adverse Reactions: No Known Allergies Allergy (Verified 04/02/18 09:33) Past Medical History - Social History Chew tobacco use (# tins/day): No Frequency of alcohol use: Occasional Drug Abuse: None Pulmonary Medical History: Reports: Hx Asthma Denies: Hx Tuberculosis Neurological Medical History: Reports: Hx Migraine Endocrine Medical History: Reports: Hx Hypothyroidism - Hashimotos Disease Renal/ Medical History: Denies: Hx Ectopic , Hx Peritoneal Dialysis Musculoskeltal Medical History: Reports Hx Arthritis, Reports Hx Musculoskeletal Deformity - Scoliosis Skin Medical History: Reports Hx Eczema Psychiatric Medical History: Reports: Hx Depression Past Surgical History: Reports: Hx Tubal Ligation. Denies: Hx Pacemaker - Immunizations Immunizations up to date: Yes Hx Diphtheria, Pertussis, Tetanus Vaccination: Yes Physical Exam - Vital signs Vitals: Temp Pulse Resp BP Pulse Ox 97.7 F 89 18 129/90 H 97 04/02/18 08:53 04/02/18 08:53 04/02/18 08:53 04/02/18 08:53 04/02/18 08:53 Course - Vital Signs Vital signs: Temp Pulse Resp BP Pulse Ox 97.7 F 89 18 129/90 H 97 04/02/18 08:53 04/02/18 08:53 04/02/18 08:53 04/02/18 08:53 04/02/18 08:53
--- NOTE | 2018-04-02 09:52 | ER Document Report ---
ED General - General Chief Complaint: Headache Stated Complaint: TROUBLE BREATHING AND SKIN RASH Time Seen by Provider: 04/02/18 09:27 Notes: Patient is a 27-year-old female with asthma that presents to the emergency department for chief complaint of cough, wheezing, and rash. Patient states that she is been having increased cough over the past few days, with chest tightness, and wheezing. Denies any fevers or chills or night sweats. She has been using her rescue inhaler without much improvement. She is not on a daily medicine for her asthma, she has been trying to take Benadryl as well. She has had a rash has been getting progressively worse of the last few weeks, particularly on her legs, on the back of her calves, and back of the knees, as well as on the dorsal aspect of her ankles and feet. Reports having history of atopic dermatitis, but it has never been this severe, she has been trying to see a instructor ground services but has not had an appointment yet. She is also had some blistering associated with this as well on her shins, denies any raised lesions or redness. She states that the rash is itching, constant. No new allergens that she is aware of. Past Medical History: Asthma, atopic dermatitis Past Surgical History: Denies major surgical history Social History: Denies current tobacco, alcohol or drug use. Family History: Reviewed and noncontributory for presenting illness Allergies: Reviewed, see documented allergy list. REVIEW OF SYSTEMS: Other than noted above, the 12 point review of systems was reviewed with the patient and were negative, all pertinent findings are included in the HPI. PHYSICAL EXAMINATION: Vital signs reviewed, nursing noted reviewed. GENERAL: Well-appearing, well-nourished and in no acute distress. HEAD: Atraumatic, normocephalic. EYES: Eyes appear normal, extraocular movements intact, sclera anicteric, conjunctiva are normal. ENT: nares patent, oropharynx clear without exudates. Moist mucous membranes. NECK: Normal range of motion, supple without lymphadenopathy LUNGS: Bilateral wheezing noted throughout all lung ramirez, dry cough on exam, no acute respiratory distress. HEART: Regular rate and rhythm without murmurs ABDOMEN: Soft, nontender, normoactive bowel sounds. No rebound, guarding, or rigidity. No masses appreciated. EXTREMITIES: Nontender, good range of motion, no pitting or edema. NEUROLOGICAL: No focal neurological deficits. Moves all extremities spontaneously Motor and sensory grossly intact on exam. PSYCH: Normal mood, normal affect. SKIN: Warm, Dry, normal turgor, plaque like lesions noted on the dorsal aspects of the ankles bilaterally, no surrounding erythema, or lymphangitis, similar appearance on the posterior aspects of the knees bilaterally. Are several healing blisters on the anterior shins, these areas are not raised or tender. TRAVEL OUTSIDE OF THE [place] IN LAST 30 DAYS: No - Related Data Allergies/Adverse Reactions: No Known Allergies Allergy (Verified 04/02/18 09:33) Past Medical History - Social History Smoking Status: Never Smoker Chew tobacco use (# tins/day): No Frequency of alcohol use: Occasional Drug Abuse: None Family History: Arthritis, CAD, CVA, DM, Hyperlipidemia, Hypertension, Malignancy, Thyroid Disfunction, Other Patient has suicidal ideation: No Patient has homicidal ideation: No Pulmonary Medical History: Reports: Hx Asthma Denies: Hx Tuberculosis Neurological Medical History: Reports: Hx Migraine Endocrine Medical History: Reports: Hx Hypothyroidism - Hashimotos Disease Renal/ Medical History: Denies: Hx Ectopic , Hx Peritoneal Dialysis Musculoskeletal Medical History: Reports Hx Arthritis, Reports Hx Musculoskeletal Deformity - Scoliosis Skin Medical History: Reports Hx Eczema Psychiatric Medical History: Reports: Hx Depression Past Surgical History: Reports: Hx Tubal Ligation. Denies: Hx Pacemaker - Immunizations Immunizations up to date: Yes Hx Diphtheria, Pertussis, Tetanus Vaccination: Yes Physical Exam - Vital signs Vitals: Temp Pulse Resp BP Pulse Ox 97.7 F 89 18 129/90 H 97 04/02/18 08:53 04/02/18 08:53 04/02/18 08:53 04/02/18 08:53 04/02/18 08:53 Course - Re-evaluation Re-evalutation: Patient seen and examined vital signs reviewed. Patient was evaluated and treated as appropriate for the patient's presenting symptoms and complaint, with consideration of any critical or life threatening conditions that may be associated with their obtained history and exam as noted above. Patient was treated with DuoNeb breathing treatment, chest x-ray reviewed and negative for pneumonia The patient was re-evaluated and was improved Evaluation was most consistent with severe atopic dermatitis, and asthma exacerbation, will treat the patient was steroid taper, given degree of her atopic dermatitis, advised to use her albuterol inhaler at least 4 times daily, and to follow-up with a instructor ground services and her primary care. Plan of care was discussed with the patient at this point, after careful consideration I feel that that patient can be discharged from the emergency department, the patient was educated treatments and reasons to return to the emergency department based on their presumed diagnosis as noted above, they were advised to followup with a primary care physician in 2-3 days. Patient was agreeable to plan of care. *Note is created using voice recognition software and may contain spelling, syntax or grammatical errors. Chest X-Ray 04/02/18 09:32 IMPRESSION: No focal airspace disease or other acute intrathoracic process. - Vital Signs Vital signs: Temp Pulse Resp BP Pulse Ox 97.7 F 89 18 129/90 H 97 04/02/18 08:53 04/02/18 08:53 04/02/18 08:53 04/02/18 08:53 04/02/18 08:53 Discharge - Discharge Clinical Impression: Asthma exacerbation Qualifiers: Asthma severity: unspecified severity Asthma persistence: unspecified Qualified Code(s): J45.901 - Unspecified asthma with (acute) exacerbation Atopic dermatitis Qualifiers: Atopic dermatitis type: unspecified Qualified Code(s): L20.9 - Atopic derm atitis, unspecified Condition: Stable Disposition: HOME, SELF-CARE Instructions: Asthma ([facility]) Additional Instructions: Please take the steroid as prescribed, and the prescribed Claritin, and use your albuterol inhaler 2 puffs 4 times daily for the next 3-5 days, then every 4 hours as needed afterwards. If your symptoms worsen or do not improve please return to the emergency department, otherwise follow-up with your primary care and dermatology. Prescriptions: Loratadine [Claritin] 10 mg PO DAILY #30 capsule Prednisone [Deltasone 10 mg Tablet] 10 mg PO DAILY #40 tablet Referrals: SCOTT PEREIRA DO [ACTIVE STAFF] - Follow up in 3-5 days
--- NOTE | 2018-04-02 10:00 | RADIOLOGY REPORT (SQ) ---
EXAM DESCRIPTION: CHEST SINGLE VIEW COMPLETED DATE/TIME: 04/02/2018 9:51 am REASON FOR STUDY: cough COMPARISON: 12/29/2016 EXAM PARAMETERS: NUMBER OF VIEWS: One view. TECHNIQUE: Single frontal radiographic view of the chest acquired. RADIATION DOSE: NA LIMITATIONS: None. FINDINGS: LUNGS AND PLEURA: No opacities, masses or pneumothorax. No pleural effusion. MEDIASTINUM AND HILAR STRUCTURES: No masses. Contour normal. HEART AND VASCULAR STRUCTURES: Heart normal in size. Normal vasculature. BONES: Serpiginous thoracolumbar scoliosis, stable. HARDWARE: None in the chest. OTHER: No other significant finding. IMPRESSION: No focal airspace disease or other acute intrathoracic process. TECHNICAL DOCUMENTATION: JOB ID: [id number] [employer]- All Rights Reserved Reading location - IP/workstation name: [email or web address]
[2018-04-02 10:31] VITALS: BP 133/83
== END 2018-04-02 10:31 | disposition home or self-care (01) ==
LOC: ER 08:48
DX: J45.901 Unspecified asthma with (acute) exacerbation (principal); L20.9 Atopic dermatitis, unspecified; S80.829A Blister (nonthermal), unspecified lower leg, initial encounter; X58.XXXA Exposure to other specified factors, initial encounter; R05 Cough; R07.89 Other chest pain
CPT/HCPCS: 94640 ×2; 99284; 71045; J7620

== ENCOUNTER 2018-06-08 10:40 | Emergency (ER) | payer SELFPAY ==
[2018-06-08] MEDS ORDERED: NAPROXEN 250 MG TABLET PO ONE (11:47)
--- NOTE | 2018-06-08 11:52 | ER Document Report ---
ED Medical Screen (RME) - General Chief Complaint: Asthma Exacerbation Stated Complaint: DIFFICULTY BREATHING Time Seen by Provider: 06/08/18 11:47 Notes: Patient is a 27-year-old female that presents to the emergency department for chief complaint of asthma flare. Patient states her symptoms have been worsening over the past, has been using her inhaler without much improvement. ROS: Other than noted above, the 12 point review of systems was reviewed with the patient and were negative, all pertinent findings are included in the HPI. PHYSICAL EXAMINATION: Vital signs reviewed. GENERAL: Patient appears fatigued HEAD: Atraumatic, normocephalic. EYES: Pupils equal round extraocular movements intact, conjunctiva are normal. ENT: Nares patent NECK: Normal range of motion CV: Heart regular rate and rhythm LUNGS: Severely diminished air movement throughout all lung ramirez, faint inspiratory wheezing noted Musculoskeletal: Normal range of motion NEUROLOGICAL: Normal speech PSYCH: Normal mood, normal affect. MDM: Patient seen and examined for rapid initial assessment. Vital signs reviewed. A comprehensive ED assessment and evaluation of the patient, analysis of test results and completion of the medical decision making process will be conducted by additional ED providers. *Note is created using voice recognition software and may contain spelling, syntax or grammatical errors. TRAVEL OUTSIDE OF THE [place] IN LAST 30 DAYS: No - Related Data Allergies/Adverse Reactions: No Known Allergies Allergy (Verified 04/02/18 09:33) Past Medical History Pulmonary Medical History: Reports: Hx Asthma Denies: Hx Tuberculosis Neurological Medical History: Reports: Hx Migraine Endocrine Medical History: Reports: Hx Hypothyroidism - Hashimotos Disease Renal/ Medical History: Denies: Hx Ectopic , Hx Peritoneal Dialysis Musculoskeltal Medical History: Reports Hx Arthritis, Reports Hx Musculoskeletal Deformity - Scoliosis Skin Medical History: Reports Hx Eczema Psychiatric Medical History: Reports: Hx Depression Past Surgical History: Reports: Hx Tubal Ligation. Denies: Hx Pacemaker - Immunizations Immunizations up to date: Yes Hx Diphtheria, Pertussis, Tetanus Vaccination: Yes Physical Exam - Vital signs Vitals: Temp Pulse Resp BP Pulse Ox 98.0 F 90 28 H 133/84 H 99 06/08/18 10:48 06/08/18 10:48 06/08/18 10:48 06/08/18 10:48 06/08/18 10:48 Course - Vital Signs Vital signs: Temp Pulse Resp BP Pulse Ox 98.0 F 90 28 H 133/84 H 99 06/08/18 10:48 06/08/18 10:48 06/08/18 10:48 06/08/18 10:48 06/08/18 10:48
[2018-06-08] MEDS ORDERED: BUDESONIDE NEB 0.5 MG/2 ML AMPUL NEB ONE (11:53)
[2018-06-08] MEDS ORDERED: PREDNISONE 20 MG TABLET PO ONE (11:53)
[2018-06-08] MEDS ORDERED: IPRATROPIUM/ALBUTEROL 0.5-2.5 MG/3 ML AMPUL NEB ONE (11:53)
--- NOTE | 2018-06-08 13:39 | ER Document Report ---
ED General - General Chief Complaint: Asthma Exacerbation Stated Complaint: DIFFICULTY BREATHING Time Seen by Provider: 06/08/18 11:47 TRAVEL OUTSIDE OF THE [place] IN LAST 30 DAYS: No - HPI Notes: Patient presents to the emergency department for evaluation of shortness of breath. She states it feels typical of her asthma. She has been using her rescue inhaler without significant relief. She does not have a nebulizer. She denies any fevers or chills. She has been hospitalized in the past with her asthma, but only when she was . She is never been intubated. She denies any pain at this time. - Related Data Allergies/Adverse Reactions: No Known Allergies Allergy (Verified 04/02/18 09:33) Past Medical History - General Information source: Patient - Social History Smoking Status: Never Smoker Family History: Arthritis, CAD, CVA, DM, Hyperlipidemia, Hypertension, Malignancy, Thyroid Disfunction, Other Patient has suicidal ideation: No Patient has homicidal ideation: No Pulmonary Medical History: Reports: Hx Asthma Denies: Hx Tuberculosis Neurological Medical History: Reports: Hx Migraine Endocrine Medical History: Reports: Hx Hypothyroidism - Hashimotos Disease Renal/ Medical History: Denies: Hx Ectopic , Hx Peritoneal Dialysis Musculoskeletal Medical History: Reports Hx Arthritis, Reports Hx Musculoskeletal Deformity - Scoliosis Skin Medical History: Reports Hx Eczema Psychiatric Medical History: Reports: Hx Depression Past Surgical History: Reports: Hx Tubal Ligation. Denies: Hx Pacemaker - Immunizations Immunizations up to date: Yes Hx Diphtheria, Pertussis, Tetanus Vaccination: Yes Review of Systems - Review of Systems Constitutional: No symptoms reported EENT: No symptoms reported Cardiovascular: No symptoms reported Respiratory: See HPI Gastrointestinal: No symptoms reported Musculoskeletal: No symptoms reported Skin: No symptoms reported Neurological/Psychological: No symptoms reported Physical Exam - Vital signs Vitals: Temp Pulse Resp BP Pulse Ox 98.0 F 90 28 H 133/84 H 99 06/08/18 10:48 06/08/18 10:48 06/08/18 10:48 06/08/18 10:48 06/08/18 10:48 Interpretation: Tachypneic - Notes Notes: Vital signs reviewed, please refer to chart. Patient is normocephalic, atraumatic. Pupils equal round, reactive to light. Neck is supple without meningismus. Heart is regular rate and rhythm. Lungs reveal extremely scant expiratory wheezes. Patient is actively obtaining a nebulizer treatment at this time. Abdomen is soft, nontender, normoactive bowel sounds throughout. Extremities without cyanosis, clubbing, edema. Peripheral pulses are equal. Skin is warm and dry. Patient is awake, alert, neurological exam is nonfocal. Course - Re-evaluation Re-evalutation: 06/08/18 13:42 Patient presents emergency department for evaluation of an exacerbation of her asthma. She had documented elevated respiratory rate, but at the time of my exam she is breathing 16-18 times per minute. She is oxygenating well. She is feeling improved and barely wheezing after treatment. Sent with an albuterol inhaler at home. Also given steroids here. We will have her follow-up with primary care this week, return to the emergency department with worsening or new concerning symptoms. - Vital Signs Vital signs: Temp Pulse Resp BP Pulse Ox 98.0 F 90 20 133/84 H 99 06/08/18 10:48 06/08/18 10:48 06/08/18 12:14 06/08/18 10:48 06/08/18 10:48 Discharge - Discharge Clinical Impression: Asthma exacerbation Condition: Stable Disposition: HOME, SELF-CARE Instructions: Asthma ([facility]) Additional Instructions: Take steroids as directed until gone, starting tomorrow. Follow-up with your doctor this week. Return to the emergency department with worsening or new concerning symptoms. Prescriptions: Prednisone [Deltasone 20 mg Tablet] 3 tab PO DAILY 5 Days tablet
[2018-06-08 13:43] VITALS: BP 117/84
[2018-06-08] MEDS ORDERED: ALBUTEROL SULFATE HFA (90 MCG/PUFF) 8 GM MDI (1 MDI/ER DISP) IH SCH (13:45)
== END 2018-06-08 13:45 | disposition home or self-care (01) ==
LOC: ER 10:40
DX: J45.901 Unspecified asthma with (acute) exacerbation (principal); R06.02 Shortness of breath
CPT/HCPCS: 94640 ×2; 99284; J7512; J3490; J7620

== ENCOUNTER 2018-11-10 09:25 | Emergency (ER) | payer SELFPAY ==
[2018-11-10 09:34] VITALS: BP 111/77
[2018-11-10] MEDS ORDERED: BETAMETHASONE VALERATE 0.1% TP ONE (10:26)
[2018-11-10] MEDS ORDERED: DEXAMETHASONE SOD PHOS INJ 10 MG/1 ML VIAL IM ONE (10:27)
--- NOTE | 2018-11-10 10:33 | ER Document Report ---
HPI - HPI Patient complains to provider of: rash Time Seen by Provider: 11/10/18 10:18 Pain Level: 1 Context: 19-year-old female with atopic dermatitis presents to the emergency department with generalized rash over her chin, neck, chest, bilateral dorsal feet, posterior legs that has gotten progressively worse over the last few days. Patient is seen here periodically for the same issue. Patient states that she does not know the trigger but believe she has been scratching the back of her legs when she is sleeping and has created excoriations with open wounds. She says she is been using Neosporin for those. She says she has tried all types of creams and lotions and attempts to abide by general hygiene recommendations for people with eczema. She denies fevers or chills, denies any sickness. No other complaints - REPRODUCTIVE LMP: 2 wk ago Reproductive: DENIES: : Past Medical History - Social History Smoking Status: Never Smoker Family History: Arthritis, CAD, CVA, DM, Hyperlipidemia, Hypertension, Malignancy, Thyroid Disfunction, Other Patient has suicidal ideation: No Patient has homicidal ideation: No Pulmonary Medical History: Reports: Hx Asthma Denies: Hx Tuberculosis Neurological Medical History: Reports: Hx Migraine Endocrine Medical History: Reports: Hx Hypothyroidism - Hashimotos Disease Renal/ Medical History: Denies: Hx Ectopic , Hx Peritoneal Dialysis Musculoskeletal Medical History: Reports Hx Arthritis, Reports Hx Musculoskeletal Deformity - Scoliosis Skin Medical History: Reports Hx Eczema Psychiatric Medical History: Reports: Hx Depression Past Surgical History: Reports: Hx Tubal Ligation. Denies: Hx Pacemaker - Immunizations Immunizations up to date: Yes Hx Diphtheria, Pertussis, Tetanus Vaccination: Yes Vertical Provider Document - CONSTITUTIONAL Notes: PHYSICAL EXAMINATION: Reviewed vital signs and charting by RN GENERAL: Alert, interacts well. No acute distress. HEAD: Normocephalic, atraumatic. EYES: Pupils equal and round. Extraocular movements intact. ENT: Oral mucosa moist, tongue midline. NECK: Full range of motion. Trachea midline. EXTREMITIES: Moves all 4 extremities spontaneously. No edema, No cyanosis. PSYCH: Normal affect, normal mood. SKIN: Warm, dry, normal turgor. Generalized plaque like rash with small areas of excoriation on the anterior neck and the posterior bilateral legs in the popliteal fossa, skin is flaking and rash is slightly raised and slightly hyperpigmented - INFECTION CONTROL TRAVEL OUTSIDE OF THE .[place] IN LAST 30 DAYS: No Course - Re-evaluation Re-evalutation: 11/10/18 10:30 Patient presents with to severe atopic dermatitis. She states that she previously had a dermatology consult but was unable to make an appointment due to lack of insurance. She says that she is prescribed betamethasone lotion and steroids here in the emergency department which she uses for her primary care has reported relief in the past. Her presentation is consistent with an eczema outbreak. Because of patient's history and knowledge of her disease I will give her dexamethasone 10 mg IM once and betamethasone lotion as with previous visits. I will also give her a 5-day course of prednisone. I will give her another referral for dermatology. At this time she is stable for discharge. - Vital Signs Vital signs: Temp Pulse Resp BP Pulse Ox 98.2 F 94 16 111/77 98 11/10/18 09:32 11/10/18 09:32 11/10/18 09:32 11/10/18 09:32 11/10/18 09:32 Discharge - Discharge Clinical Impression: Atopic dermatitis Qualifiers: Atopic dermatitis type: other Qualified Code(s): L20.89 - Other atopic dermatitis; L20.8 - Other atopic dermatitis Condition: Good Disposition: HOME, SELF-CARE Additional Instructions: You are seen in the emergency department this morning for an eczema outbreak. It is very important that you find a moisturizing lotion that you can tolerate. Typical recommendations from dermatologists are CeraVe and Eucerin cream. It is important to get the cream as it is typically a little bit thicker and will retain moisture. Also, ensure that you take lukewarm showers, pat dry, and then apply moisturizing cream immediately after getting out of the shower as this will hold moisture in your skin. Also, it is okay to apply Neosporin ointment to areas where you have open wounds no more than 3 times per day. I have given you a steroid shot here and a short course of prednisone as well. I have also given you a steroid lotion that he can apply over the areas 2 times per day. If you develop fevers, chills, any of your open areas become infected with purulent discharge, or have any other concerning symptoms please immediately return to the emergency department. Forms: Return to Work Referrals: [facility] [Provider Group] - Follow up in 1 week
== END 2018-11-10 10:44 | disposition home or self-care (01) ==
LOC: ER 09:25
DX: L20.89 Other atopic dermatitis (principal); R21 Rash and other nonspecific skin eruption; J45.909 Unspecified asthma, uncomplicated
CPT/HCPCS: 99282; 96374; J3490; J1100

== ENCOUNTER 2019-03-30 09:22 | Emergency (ER) | payer OTHER ==
[2019-03-30] MEDS ORDERED: NORMAL SALINE 1000 ML 1,000 ML IV ONE (10:41)
--- NOTE | 2019-03-30 10:44 | ER Document Report ---
ED Medical Screen (RME) - General Chief Complaint: Fainting Stated Complaint: SYNCOPE Time Seen by Provider: 03/30/19 10:34 Notes: Patient is a 28-year-old female with a history of hyperthyroidism who presents to the emergency department with a chief complaint of syncopal episode. Patient reports that she was taking a tour at work when they were walking around the building and she passed out. Patient reports she did not have any symptoms prior to passing out such as diaphoresis, lightheadedness, chest pain or palpitations. Patient reports she felt normal. Coworker states that she did have a loss of consciousness for about 10 minutes and when she did fall on the carpet she did strike the back of her head. Patient denies complaints at this time including head pain, neck pain. Patient reports this is never happened to her before. Patient reports the last time she did eat was around 9 PM last night. Patient states she has not eaten or drinking anything today. Patient reports she did bite the bottom lip during the fall. Patient reports she does not take any daily medications. Patient reports a history of tubal ligation. TRAVEL OUTSIDE OF THE [place] IN LAST 30 DAYS: No - Related Data Allergies/Adverse Reactions: No Known Allergies Allergy (Verified 03/30/19 10:31) Home Medications: MEDS OBTAINED FROM PT. Past Medical History - Social History Chew tobacco use (# tins/day): No Frequency of alcohol use: Rare Drug Abuse: None Pulmonary Medical History: Reports: Hx Asthma Denies: Hx Tuberculosis Neurological Medical History: Reports: Hx Migraine Endocrine Medical History: Reports: Hx Hypothyroidism - Hashimotos Disease Renal/ Medical History: Denies: Hx Ectopic , Hx Peritoneal Dialysis Musculoskeltal Medical History: Reports Hx Arthritis, Reports Hx Musculoskeletal Deformity - Scoliosis Skin Medical History: Reports Hx Eczema Psychiatric Medical History: Reports: Hx Depression Past Surgical History: Reports: Hx Tubal Ligation. Denies: Hx Pacemaker - Immunizations Immunizations up to date: Yes Hx Diphtheria, Pertussis, Tetanus Vaccination: Yes Physical Exam - Vital signs Vitals: Temp Pulse Resp BP Pulse Ox 97.7 F 73 14 94/66 L 100 03/30/19 10:10 03/30/19 10:10 03/30/19 10:10 03/30/19 10:10 03/30/19 10:10 - HEENT Head: Normocephalic Eyes: Normal Pupils: PERRL Notes: Patient has a half a centimeter superficial laceration to the left lower bottom lip. There is no active bleeding. There is slight edema. - Back Notes: No cervical, thoracic or lumbar midline tenderness. Course - Re-evaluation Re-evalutation: 03/30/19 10:43 Patient is asymptomatic at this time. Will check basic labs including a TSH. Will obtain an EKG and a head CT. Head CT is warranted as the patient did have a loss of consciousness and did not strike the back of her head. Patient was noted to have a blood pressure 94/66. Will give IV fluids. I have greeted and performed a rapid initial assessment of this patient. A comprehensive ED assessment and evaluation of the patient, analysis of test results and completion of the medical decision making process will be conducted by additional ED providers. 03/30/19 10:44 - Vital Signs Vital signs: Temp Pulse Resp BP Pulse Ox 97.7 F 73 14 94/66 L 100 03/30/19 10:32 03/30/19 10:10 03/30/19 10:32 03/30/19 10:10 03/30/19 10:32
[2019-03-30 11:40] LABS: ABSOLUTE EOSINOPHILS # (AUTO) 0.4 10^3/uL (0.0-0.6); ABSOLUTE LYMPHOCYTES (AUTO) 0.8 10^3/uL (0.5-4.7); ABSOLUTE MONOCYTES (AUTO) 0.3 10^3/uL (0.1-1.4); ABSOLUTE NEUT (AUTO) 1.3 10^3/uL (1.7-8.2); BASOPHILS % (AUTO) 1.3 % (0-2); EOSINOPHILS % (AUTO) 13.1 % (0-6); HEMATOCRIT 37.3 % (36.0-47.0); HEMOGLOBIN 12.3 g/dL (12.0-15.5); LYMPHOCYTES % (AUTO) 27.9 % (13-45); MEAN CORPUSCULAR HEMOGLOBIN 28.6 pg (27.0-33.4); MEAN CORPUSCULAR VOLUME 87 fl (80-97); MONOCYTES % (AUTO) 10.1 % (3-13); PLATELET COUNT 391 10^3/uL (150-450); RED CELL DISTRIBUTION WIDTH 17.5 % (11.5-14.0); SEGMENTED NEUTROPHILS % (AUTO) 47.6 % (42-78); TOTAL CELLS COUNTED % (AUTO) 100 %; WHITE BLOOD COUNT 2.8 10^3/uL (4.0-10.5)
--- NOTE | 2019-03-30 11:40 | RADIOLOGY REPORT (SQ) ---
EXAM DESCRIPTION: CT HEAD WITHOUT COMPLETED DATE/TIME: 03/30/2019 11:29 am REASON FOR STUDY: syncopal episode/ + LOC, hit head COMPARISON: 07/28/2016. TECHNIQUE: Axial images acquired through the brain without intravenous contrast. Images reviewed wi th bone, brain and subdural windows. Additional sagittal and coronal reconstructions were generated. Images stored on PACS. All CT scanners at this facility use dose modulation, iterative reconstruction, and/or weight based d osing when appropriate to reduce radiation dose to as low as reasonably achievable (ALARA). [facility]: Dose Right [facility]: CareDose [facility]: Dose Right [facility]: Teradose 4D [facility]: [employer] RADIATION DOSE: CT Rad equipment meets quality standard of care and radiation dose reduction techniq ues were employed. CTDIvol: 53.2 mGy. DLP: 1044 mGy-cm. mGy. LIMITATIONS: None. FINDINGS: VENTRICLES: Normal size and contour. CEREBRUM: No masses. No hemorrhage. No midline shift. No evidence for acute infarction. Normal gra y/white matter differentiation. No areas of low density in the white matter. CEREBELLUM: No masses. No hemorrhage. No alteration of density. No evidence for acute infarction. EXTRAAXIAL SPACES: No fluid collections. No masses. ORBITS AND GLOBE: No intra- or extraconal masses. Normal contour of globe without masses. CALVARIUM: No fracture. PARANASAL SINUSES: Mucous membrane thickening in the left maxillary sinus, not completely imaged. SOFT TISSUES: No mass or hematoma. OTHER: No other significant finding. IMPRESSION: NORMAL BRAIN CT WITHOUT CONTRAST. EVIDENCE OF ACUTE STROKE: NO. COMMENT: Quality ID # [id number]: Final reports with documentation of one or more dose reduction techniques (e.g., Automated exposure control, adjustment of the mA and/or kV according to patient size, use of iterative reconstruction technique) TECHNICAL DOCUMENTATION: JOB ID: [id number] [employer]- All Rights Reserved Reading location - IP/workstation name: [email or web address]
[2019-03-30 11:41] LABS: APPEARANCE,URINE CLOUDY; BILIRUBIN,URINE NEGATIVE (NEGATIVE); COLOR,URINE AMBER; GLUCOSE, URINE NEGATIVE (NEGATIVE); KETONES,URINE NEGATIVE (NEGATIVE); LEUKOCYTE ESTERASE,URINE NEGATIVE (NEGATIVE); NITRITE,URINE POSITIVE (NEGATIVE); PROTEIN,URINE 30 mg/dL (NEGATIVE); URINE SPECIFIC GRAVITY 1.023
[2019-03-30 11:58] LABS: ALBUMIN 4.7 g/dL (3.5-5.0); ALKALINE PHOSPHATASE 51 U/L (38-126); ANION GAP 12 (5-19); ASPARTATE AMINO TRANSFERASE 24 U/L (14-36); BILIRUBIN,DIRECT 0.1 mg/dL (0.0-0.4); BILIRUBIN,TOTAL 0.4 mg/dL (0.2-1.3); BLOOD UREA NITROGEN 10 mg/dL (7-20); CALCIUM 9.7 mg/dL (8.4-10.2); CARBON DIOXIDE 28 mmol/L (22-30); CHLORIDE 101 mmol/L (98-107); GLUCOSE 91 mg/dL (75-110); POTASSIUM 4.6 mmol/L (3.6-5.0); TOTAL PROTEIN 8.2 g/dL (6.3-8.2)
--- NOTE | 2019-03-30 12:09 | RADIOLOGY REPORT (SQ) ---
EXAM DESCRIPTION: CHEST 2 VIEWS COMPLETED DATE/TIME: 03/30/2019 11:37 am REASON FOR STUDY: syncopal episode COMPARISON: 04/02/2018 EXAM PARAMETERS: NUMBER OF VIEWS: two views TECHNIQUE: Digital Frontal and Lateral radiographic views of the chest acquired. RADIATION DOSE: NA LIMITATIONS: none FINDINGS: LUNGS AND PLEURA: No suspicious pulmonary nodules. No consolidation or effusions. Matchi ng opacities overlying the midlung ramirez are consistent with nipple shadows. MEDIASTINUM AND HILAR STRUCTURES: No masses or contour abnormalities. HEART AND VASCULAR STRUCTURES: Heart normal size. No evidence for failure. BONES: There is scoliosis with concavity toward the left. HARDWARE: None in the chest. OTHER: No other significant finding. IMPRESSION: NO ACUTE RADIOGRAPHIC FINDING IN THE CHEST. TECHNICAL DOCUMENTATION: JOB ID: [id number] [employer]- All Rights Reserved Reading location - IP/workstation name: [email or web address]
--- NOTE | 2019-03-30 12:30 | ER Document Report ---
ED General - General Chief Complaint: Fainting Stated Complaint: SYNCOPE Time Seen by Provider: 03/30/19 10:34 Information source: Patient Notes: 28-year-old female with history of asthma and Guerrero's hypothyroidism presents emergency department post syncope this morning. 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 She reports she did not feel lightheaded or dizzy. She was not nauseated. She just passed out she said as soon as she passed out she was waking up she was out less than 10 seconds. She reports she has not had anything to eat since last night at 8 PM. She reports she woke up early did not want to be late for work and just left for work. She reports she has not had anything to eat or drink. She usually eats in the morning. She denies recent cold symptoms. Denies fever vomiting diarrhea. Denies chest pain shortness of breath. Reports she has been feeling tired but she has been working extra hours. Patient has not been to a provider in many years because she has not had insurance. She is not sure when the last time she had her thyroid checked. Reports she feels fine now. Denies head or neck pain. TRAVEL OUTSIDE OF THE [place] IN LAST 30 DAYS: No - HPI Onset: Just prior to arrival Onset/Duration: Sudden - Related Data Allergies/Adverse Reactions: No Known Allergies Allergy (Verified 03/30/19 10:31) Home Medications: MEDS OBTAINED FROM PT. Past Medical History - Social History Smoking Status: Never Smoker Chew tobacco use (# tins/day): No Frequency of alcohol use: Rare Drug Abuse: None Family History: Arthritis, CAD, CVA, DM, Hyperlipidemia, Hypertension, Malignancy, Thyroid Disfunction, Other Patient has suicidal ideation: No Patient has homicidal ideation: No Pulmonary Medical History: Reports: Hx Asthma Denies: Hx Tuberculosis Neurological Medical History: Reports: Hx Migraine Endocrine Medical History: Reports: Hx Hypothyroidism - Hashimotos Disease Renal/ Medical History: Denies: Hx Ectopic , Hx Peritoneal Dialysis Musculoskeletal Medical History: Reports Hx Arthritis, Reports Hx Musculoskeletal Deformity - Scoliosis Skin Medical History: Reports Hx Eczema Psychiatric Medical History: Reports: Hx Depression Past Surgical History: Reports: Hx Tubal Ligation. Denies: Hx Pacemaker - Immunizations Immunizations up to date: Yes Hx Diphtheria, Pertussis, Tetanus Vaccination: Yes Review of Systems - Review of Systems Notes: Review HPI for review of systems., All other systems negative Physical Exam - Vital signs Vitals: Temp Pulse Resp BP Pulse Ox 97.7 F 73 14 94/66 L 100 03/30/19 10:10 03/30/19 10:10 03/30/19 10:10 03/30/19 10:10 03/30/19 10:10 Course - Re-evaluation Re-evalutation: 03/30/19 12:33 28-year-old female with history of asthma and hypothyroidism presents post syncope. 03/30/19 12:33 Dr. Lee was contacted for admission for hypo-thyroidism. He did come to the emergency department patient declines admission even after talking to the hospitalist. Dr. Lee did write prescriptions for location for her. Chest X-Ray 03/30/19 10:39 IMPRESSION: NO ACUTE RADIOGRAPHIC FINDING IN THE CHEST. Head CT 03/30/19 10:39 IMPRESSION: NORMAL BRAIN CT WITHOUT CONTRAST. EVIDENCE OF ACUTE STROKE: NO. - Vital Signs Vital signs: Temp Pulse Resp BP Pulse Ox 97.7 F 73 14 97/63 L 100 03/30/19 10:32 03/30/19 10:10 03/30/19 14:13 03/30/19 14:13 03/30/19 14:13 - Laboratory Result Diagrams: 03/30/19 10:45 03/30/19 10:45 Laboratory results interpreted by me: 03/30/19 03/30/19 03/30/19 10:45 10:45 10:45 WBC 2.8 L RDW 17.5 H Eos % (Auto) 13.1 H Absolute Neuts (auto) 1.3 L TSH 95.10 H Free T4 Urine Protein 30 H Urine Blood SMALL H Urine Nitrite POSITIVE H Urine Urobilinogen 4.0 H 03/30/19 10:45 WBC RDW Eos % (Auto) Absolute Neuts (auto) TSH Free T4 0.38 L Urine Protein Urine Blood Urine Nitrite Urine Urobilinogen - EKG Interpretation by Me EKG shows normal: Sinus rhythm Additional EKG results interpreted by me: 03/30/19 12:[address] elevation T wave inversion to multiple leads II III, aVF, V3 V4 V5 V6 - Consults DR LEE Time consulted: 13:04 Reason for consultation: 03/30/19 13:04 HYPOTHYROIDISM, SYNCOPE Consulted provider: will come to ER Discharge - Discharge Clinical Impression: Severe hypothyroidism, Syncope Condition: Stable Disposition: HOME, SELF-CARE
[2019-03-30] MEDS ORDERED: LEVOTHYROXINE SODIUM 0.075 MG TABLET PO ONE (14:21)
[2019-03-30 14:39] VITALS: BP 97/63
--- NOTE | 2019-03-31 00:28 | EKG REPORT ---
SEVERITY:- ABNORMAL ECG - SINUS RHYTHM NONSPECIFIC T ABNORMALITIES, DIFFUSE LEADS : Confirmed by: Kira Oliveira 31-Mar-2019 00:28:04
== END 2019-03-30 14:41 | disposition home or self-care (01) ==
LOC: ER 09:22
DX: R55 Syncope and collapse (principal); E06.3 Autoimmune thyroiditis; R53.83 Other fatigue; J45.909 Unspecified asthma, uncomplicated
CPT/HCPCS: 36415; 84439; 84443; 85025; 81025; 80053; 81001; 84484; 71046; 70450; J7030; 93005; 93010; 96360; 99285